=== PATIENT | female | born 1995 | race Caucasian/White ===

== ENCOUNTER 2021-10-08 13:47 | Emergency (ER) | payer OTHER, SELFPAY ==
--- NOTE | ~2021-10-08 | CT_ITS ---
EXAMINATION: CT brain wo con DATE: 10/08/2021 14:09 INDICATION: Headache TECHNIQUE: Computed tomography (CT) of the head was performed without intravenous contrast. Sagittal and coronal reconstructions were performed. The mA was adjusted according to patient size. Iterative reconstruction technique was employed. The dose-length product was 529.67 mGy-cm. COMPARISON: None FINDINGS: No acute intracranial hemorrhage, acute infarction or abnormal extra axial fluid collection. Ventricl es are normal and symmetric. No mass/mass effect. The orbits, paranasal sinuses and mastoid air cells are normal. IMPRESSION: 1. Normal head CT. No acute intracranial process. Reviewed, dictated and finalized at location A.
[2021-10-08 13:49] VITALS: BP 139/70; PULSE 76; RESP 16; TEMP 35.7; O2SAT 99
--- NOTE | 2021-10-08 14:00 | ED.HA ---
HPI - Headache General Chief Complaint: Unspecified Stated Complaint: STUTTERING Time Seen by Provider: 10/08/21 13:54 Source: patient Mode of arrival: ambulatory Limitations: no limitations History of Present Illness HPI Narrative: Patient is a 26-year-old female complaining of headache accompanied by stuttering that started last night but now resolved. Patient states her headache is from back to frontal, mild 3 out of 10, dull. Patient denies any visual disturbance, focal weakness or numbness, unsteady gait, dizziness, neck pain, back pain, chest pain, shortness of breath, nausea, vomiting, diaphoresis, fever or chills. Related Data Allergies Allergy/AdvReac Type Severity Reaction Status Date / Time No Known Allergies Allergy Verified 10/08/21 13:56 Review of Systems Review of Systems: Per HPI All systems reviewed & are unremarkable except as noted in HPI and below Constitutional: Constitutional: Denies body ache(s), Denies chills, Denies excessive sweating, Denies fatigue, Denies fever(s), Denies headache(s), Denies lethargy, Denies malaise, Denies weakness and Denies weight loss Eyes: Eyes: Denies blurry vision, Denies change in vision and Denies loss of vision ENT: Denies dizziness, Denies ear discharge, Denies headache(s), Denies lip swelling, Denies epistaxis, Denies nasal congestion, Denies neck pain, Denies throat swelling and Denies tongue swelling Cardiovascular: Cardiovascular: Denies chest pain, Denies chest pain at rest, Denies chest pain with activity, Denies diaphoresis, Denies rapid heart rate, Denies edema, Denies irregular heart rhythm, Denies lightheadedness, Denies palpitations, Denies dyspnea and Denies dyspnea on exertion Respiratory: Respiratory: Denies chest congestion, Denies cough, Denies hemoptysis, Denies dyspnea and Denies dyspnea on exertion Gastrointestinal: Gastrointestinal: Denies abdominal pain, Denies melena, Denies hematochezia, Denies diarrhea, Denies nausea, Denies vomiting and Denies hematemesis Musculoskeletal: Musculoskeletal: Denies abnormal gait, Denies deformity, Denies joint swelling, Denies limited range of motion, Denies neck pain and Denies numbness Neurologic: Denies abnormal gait, Denies confusion, Denies dizziness, Denies focal weakness, Denies loss of vision, Denies numbness, Denies Other visual disturbances, Denies Sensory deficit (Neuro) and Denies weakness Psychiatric: Psychiatric: Denies confusion, Denies depression, Denies auditory hallucinations, Denies homicidal ideation and Denies suicidal ideation Endocrine: Endocrine: Denies cold intolerance, Denies excessive sweating, Denies fatigue, Denies heat intolerance and Denies palpitations Hematologic/Lymphatic: Hematologic/Lymphatic: Denies easy bleeding and Denies easy bruising Allergic/Immunologic: Allergic/Immunologic: Denies lip swelling, Denies throat swelling and Denies tongue swelling PMFSH Comments Past medical history: Celiac disease Family history: Negative for stroke, aneurysm or dissection Social history: Non-smoker no EtOH or drug use Exam Const: General: cooperative, healthy appearing, comfortable, no acute distress, well developed, alert and awake; No confusion Orientation/consciousness: oriented to person, oriented to place, oriented to time, patient oriented x3 and No confusion Limitations: no limitations HENMT: Head: normal to inspection, normocephalic and atraumatic Ears: hearing grossly normal bilaterally, TM normal on the right and TM normal on the left General nose exam: Normal external nose present, Normal nares present and No nasal discharge present Face and sinus: normal facial exam Mouth: Yes Normal oral and palatal mucosa present, Yes lip normal, Yes tongue normal and Yes oropharynx normal Throat: posterior oropharynx normal, tonsils normal and uvula midline Eyes: General: appearance normal, both eyes and all related structures Pupils: Equal, round and reactive pupils present EOM: EOMs intac
[2021-10-08 14:36] LABS: Basophils Percent Auto 0.4 % (0.2-1.2); Eosinophils Absolute Auto 0.1 K/mm3 (0-0.3); Eosinophils Percent Auto 0.9 % (0-4.4); Hematocrit 37.7 % (37.0-47.0); Hemoglobin 11.9 g/dL (12.0-15.0); Immature Granulocyte Absolute 0.01 K/mm3 (0.00-0.031); Immature Granulocyte Percent A 0.1 % (0-0.5); Lymphocytes Absolute Auto 2.31 K/mm3 (0.9-3.2); Lymphocytes Percent Auto 34.1 % (18.3-44.2); Mean Corpuscular HGB Conc 31.6 g/dl (32-36); Mean Corpuscular Hemoglobin 25.1 pg (26-34); Mean Corpuscular Volume 79.5 fl (80-100); Mean Platelet Volume 10.3 fl (7.4-10.4); Monocytes Absolute Auto 0.5 K/mm3 (0.1-0.6); Neutrophils Absolute Auto 3.8 K/mm3 (1.3-6.7); Neutrophils Percent Auto 56.5 % (45.5-73.1); Platelet Count Result 287 k/mm3 (150-375); Red Blood Count 4.74 M/mm3 (4.2-5.4); White Blood Count 6.8 K/mm3 (4.5-10.0)
[2021-10-08 14:46] LABS: Anion Gap 7 mmol/L (8-16); Blood Urea Nitrogen 15 mg/dL (7-17); Calcium 8.6 mg/dL (8.4-10.2); Carbon Dioxide 26 mmol/L (22-30); Chloride 104 mmol/L (98-107); Estimated CRCL calculation 102 ml/min; Estimated Glomerular Filt Rate > 60; Glucose 86 mg/dL (65-110); Sodium 137 mmol/L (137-145)
== END 2021-10-08 17:29 | disposition home or self-care (01) ==
PROVIDERS: Emergency Provider Emergency Medicine; PCP Family Medicine
DX: R51.9 Headache, unspecified (principal); K90.0 Celiac disease
CPT/HCPCS: 36415; 70450; 80048; 81025; 85025; 99284

== ENCOUNTER 2021-10-09 09:31 | Outpatient (CLI) | payer OTHER, SELFPAY ==
--- NOTE | ~2021-10-09 | US_ITS ---
EXAMINATION: US breast LT limited HISTORY: Mastodynia and palpable lump in the lower outer left breast TECHNIQUE: Limited left breast ultrasound is performed. FINDINGS: There is no evidence of focal abnormal cystic or solid mass in the vicinity of the patient' s left breast pain IMPRESSION: No specific sonographic correlate is identified for the patient's left breast pain and palpable lump. Further evaluation at this time should be based on clinical assessment. Continued follow-up physical examination is recommended. BI-RADS Category 1: Negative Reviewed, dictated and finalized at location A. IMPRESSION: No specific sonographic correlate is identified for the patient's left breast p ain and palpable lump. Further evaluation at this time should be based on clini yuki assessment. Continued follow-up physical examination is recommended. BI-RADS Category 1: Negative
== END 2021-10-09 09:32 ==
PROVIDERS: Visit Provider Obstetrics & Gynecology
DX: N64.4 Mastodynia (principal)
CPT/HCPCS: 76642

== ENCOUNTER 2022-07-14 10:26 | Emergency (ER) | payer OTHER, SELFPAY ==
[2022-07-14 10:51] VITALS: BP 124/81; PULSE 116; RESP 16; TEMP 37.3; O2SAT 100
--- NOTE | 2022-07-14 11:08 | ED.URI ---
HPI - URI/Sore Throat General Chief Complaint: Upper Respiratory Infection Stated Complaint: sorethroat Time Seen by Provider: 07/14/22 10:55 Source: patient, RN notes reviewed and old records reviewed Mode of arrival: ambulatory Limitations: no limitations History of Present Illness HPI Narrative: 27 year old female who presents to [facility] care with complaints of severe sore throat since yesterday with temperatures up to 104F. Patient reports that she has had COVID vaccinations no Booster but has not had flu shot. Patient reports nasal congestion, fever, body aches, states her saliva feels like it gets stuck in her throat so is spitting secretions in emesis bag, no airway compromise noted. speech is clear but is painful to talk. Patient reports that she has been taking Ibuprofen, Tylenol and also NyQuil for her symptoms. MD elicited complaint: cough and sore throat Onset (ago): day(s) (2) Pain scale (0-10): 9 Able to tolerate fluids by mouth: Yes Treatments prior to arrival: acetaminophen, ibuprofen and other (NyQuil) Related Data Allergies Allergy/AdvReac Type Severity Reaction Status Date / Time No Known Allergies Allergy Verified 07/14/22 10:52 Review of Systems Review of Systems: CONSTITUTIONAL: Reports malaise, chills, sweats, or fever. EYES: Denies visual changes, redness, or discharge. ENT: Reports rhinorrhea, congestion, sinus pain,no otalgia positive for sore throat. CARDIOVASCULAR: Denies chest pain, palpitations, or edema. RESPIRATORY: No cough.? Denies dyspnea. GASTROINTESTINAL: Denies abdominal pain, nausea, vomiting, diarrhea SKIN: Denies rash or itching. MUSCULOSKELETAL: Reports myalgia. NEUROLOGIC: Denies headache. All systems reviewed & are unremarkable except as noted in HPI and below PMFSH Past Medical History Medical History (Updated 07/19/22 @ 08:40 by Natalie Diaz NP) Celiac disease Social History Social History (Updated 07/19/22 @ 08:41 by Natalie Diaz NP) Smoking status: Never smoker Alcohol intake: current Alcohol use details: social Substance use type: does not use Gender identity (if verbalized by the patient): Female Comments At time of signature, agree with nursing past medical, surgical, social and family history. There is no relevant family history pertinent to the presenting complaint Exam Narrative: GENERAL: Well-appearing, well-nourished, and in no acute distress. HEAD: Normocephalic EYES: PERRLA, conjunctivae clear ENT: Nares clear, turbinates edematous and erythematous, clear discharge. Mucous membranes moist. TM pearly colmenares with dull light reflex bilaterally; no tragal tenderness. Oropharynx erythematous without lesions. Tonsils red, mildly enlarged and without exudate, no drooling, no hoarseness, no trismus, uvula midline. NECK: Supple. lymphadenopathy CHEST: Clear to auscultation, breath sounds equal. No wheezing, rhonchi, rales, or stridor. No respiratory distress, speaks in full sentences.SAO2 100% on room air HEART: Regular rate and rhythm. No murmur heard. SKIN: Warm, dry, no rash. NEURO: Alert and oriented x3. PSYCH: Normal mood and affect Course Course Emergency Course: Patient is aware of diagnosis, understands and agrees to treatment plan.? Anticipatory guidance given.? Patient agrees to follow-up as directed and is aware of reasons to seek care at the emergency department. Portions of this record may have been created with voice recognition software Level of Care: Express Care Visit Vital Signs Vital signs: Vital Signs Temperature 37.3 C 07/14/22 10:51 Pulse Rate 116 H 07/14/22 10:51 Respiratory Rate 16 07/14/22 10:51 Blood Pressure 124/81 07/14/22 10:51 Pulse Oximetry 100 07/14/22 10:51 Temperature 37.3 C 07/14/22 10:51 Pulse Rate 116 H 07/14/22 10:51 Respiratory Rate 16 07/14/22 10:51 Blood Pressure 124/81 07/14/22 10:51 Pulse Oximetry 100 07/14/22 10:51 Revie
== END 2022-07-14 12:02 | disposition home or self-care (01) ==
PROVIDERS: Emergency Provider Registered Nurse; PCP Family Medicine
DX: J02.0 Streptococcal pharyngitis (principal); Z20.822 Contact with and (suspected) exposure to COVID-19; K90.0 Celiac disease
CPT/HCPCS: 87081; 87147; 87426; 87804; 99213; C9803; G0463

== ENCOUNTER 2022-12-20 16:22 | Emergency (ER) | payer OTHER, SELFPAY ==
[2022-12-20 17:28] VITALS: BP 106/67; PULSE 77; RESP 15; TEMP 36.7; O2SAT 100
--- NOTE | 2022-12-20 17:57 | ED.WOUNDLAC ---
HPI - Wound/Laceration General Chief Complaint: Wound/Laceration Stated Complaint: laceration Time Seen by Provider: 12/20/22 17:28 History of Present Illness HPI narrative: 27-year-old female reports for evaluation for a laceration to her left index finger that occurred 20 minutes prior to arrival. Patient states she was using a market editor knife to cut cabbage and accidentally cut her finger. She is unsure of her last tetanus shot. Bleeding is controlled. Related Data Allergies Allergy/AdvReac Type Severity Reaction Status Date / Time No Known Allergies Allergy Verified 12/20/22 18:10 Review of Systems Review of Systems: CONSTITUTIONAL: Denies fever, chills EYES: Denies visual changes, redness, or discharge. ENT: Denies rhinorrhea, congestion, sore throat, or otalgia. CARDIOVASCULAR: Denies chest pain, palpitations, or edema. RESPIRATORY: Denies cough or dyspnea. GASTROINTESTINAL: Denies abdominal pain, nausea, vomiting, or diarrhea. GENITOURINARY: Denies dysuria or hematuria. SKIN: See HPI MUSCULOSKELETAL: Denies back pain, joint pain, or myalgia. NEUROLOGIC: Denies headache, numbness, dizziness, or weakness. PSYCHIATRIC: Denies anxiety or depression. [facility] Past Medical History Medical History Celiac disease Social History Social History Smoking status: Never smoker Alcohol intake: current Alcohol use details: social Substance use type: does not use Gender identity (if verbalized by the patient): Female Exam Narrative: GENERAL: Well-appearing, in no acute distress. HEAD: Normocephalic NECK: Supple. CHEST: No respiratory distress. Clear to auscultation, no adventitious breath sounds. HEART: Regular rate and rhythm. No murmur heard. Normal peripheral pulses. EXTREMITIES: Normal range of motion. No edema. SKIN: <1 cm circular avulsion to the medial aspect of the left second finger involving a small portion of the nail. No laceration to the wound bed. Cap refill less than 2. Full range of motion of finger. Sensation intact. Radial pulse 2+. NEURO: No focal deficits. Alert and oriented x3. PSYCH: Normal mood and affect. Course Vital Signs Vital signs: Vital Signs Temperature 98.0 F 12/20/22 17:28 Pulse Rate 77 12/20/22 17:28 Respiratory Rate 15 12/20/22 17:28 Blood Pressure 106/67 12/20/22 17:28 Pulse Oximetry 100 12/20/22 17:28 Oxygen Delivery Room Air 12/20/22 17:28 Temperature 98.0 F 12/20/22 17:28 Pulse Rate 77 12/20/22 17:28 Respiratory Rate 15 12/20/22 17:28 Blood Pressure 106/67 12/20/22 17:28 Pulse Oximetry 100 12/20/22 17:28 Oxygen Delivery Room Air 12/20/22 17:28 MDM - Wound/Laceration MDM Narrative Medical decision making narrative: 27-year-old female reports for a laceration to her left index finger that occurred just prior to arrival she was cutting cabbage. Vitals stable. Exam reveals a less than 1 cm skin avulsion to the left index finger involving a small portion of the nail. Bleeding controlled. No laceration to nailbed. She is neurovascularly intact. Tetanus updated. Plan for the avulsion to heal by secondary intention. Wound irrigated extensively with saline, antibiotic ointment and bandage applied. Encouraged Tylenol and ibuprofen for pain control, wound care discussed. No history of DM, she is not immunocompromised, therefore no ABX prescribed at this time. Advised patient follow-up with PCP within the following week for reevaluation. Strict ED return precautions discussed. Patient agrees with the plan verbalized understanding. Discharged in stable condition. Medical Records Attestation: I reviewed the patient's medical records. Lab Data Attestation: I reviewed the patient's lab results. Discharge Plan Discharge Clinical Impression: Avulsion of skin of finger Patient Disposition: Home, S
[2022-12-20] MEDS: TETANUS,DIPHTHERIA,AC PERTUSSIS ADULT (0.5 ML) BOOSTRIX IM (18:10)
[2022-12-20] MEDS: ACETAMINOPHEN 500 MG TABLET 1000 MG PO (18:11)
== END 2022-12-20 18:37 | disposition home or self-care (01) ==
PROVIDERS: Emergency Provider Physician Assistant; PCP Family Medicine
DX: S61.211A Laceration without foreign body of left index finger without damage to nail, initial encounter (principal); Z23 Encounter for immunization; W26.0XXA Contact with knife, initial encounter; Y93.G1 Activity, food preparation and clean up; K90.0 Celiac disease
CPT/HCPCS: 90471; 90715; 99282; A9270

== ENCOUNTER 2023-09-19 19:05 | Emergency (ER) | payer OTHER, SELFPAY ==
--- NOTE | 2023-09-19 19:24 | ED.URI ---
HPI - URI/Sore Throat General Chief Complaint: Upper Respiratory Infection Stated Complaint: Fever,Cough,Sore Throat,Bodyache Time Seen by Provider: 09/19/23 19:24 Source: patient Mode of arrival: ambulatory Limitations: no limitations History of Present Illness HPI Narrative: Monisha is a 28-year-old female patient presenting to the clinic today with complaints of fever, cough, sore throat, and body aches x2 days. She reports both of her children have both been sick with similar symptoms. MD elicited complaint: sore throat and nasal congestion Related Data Home Medications Medication Instructions Recorded Confirmed albuterol sulfate 90 mcg/actuation 90 mcg inhalation DIRECTED 09/19/23 09/19/23 aerosol inhaler fluoxetine 10 mg capsule 10 mg DIRECTED 09/19/23 09/19/23 Allergies Allergy/AdvReac Type Severity Reaction Status Date / Time No Known Allergies Allergy Verified 12/20/22 18:10 Review of Systems Review of Systems: Pertinent positives per HPI. Patient denies any rash, headache, visual changes, dizziness, shortness of breath, chest pain, palpitations, nausea, vomiting, diarrhea, constipation, abdominal pain, or any urinary issues. [facility] Past Medical History Medical History Celiac disease Social History Social History Smoking status: Never smoker Alcohol intake: current Alcohol use details: social Substance use type: does not use Gender identity (if verbalized by the patient): Female Comments At the time of my signature, I reviewed and agree with the nursing past medical, surgical, social, and family history. There is no relevant family history pertinent to the patient complaint. Exam Narrative: General: Well-developed, well nourished, in no apparent distress Head: Normocephalic, atraumatic Eyes: Pupils equally round and reactive to light bilaterally, EOM intact, sclera and conjunctive clear, no discharge, lids normal Ears: TMs intact and clear, ear canals clear, no drainage, grossly hearing normal. Nose: Nares patent, no discharge, no inflammation, no sinus tenderness. Mouth: Oral pharynx without lesions or masses, good dentition, MMM. Neck: Supple, trachea midline, no enlargement of anterior or posterior cervical nodes, no thyroid masses or goiter palpable. Cardio: Regular rate and rhythm, s1 and s2 normal, no murmur appreciated. Resp: Clear to auscultation bilaterally, no rhonchi, rales, wheezing or rubs Course Course Emergency Course: Portions of this record may have been created with voice recognition software. Level of Care: Express Care Visit Vital Signs Vital signs: Vital signs reviewed MDM - URI/Sore Throat MDM Narrative Medical decision making narrative: At the time of visit patient is resting comfortably on the exam table. Patient appears to be nontoxic. Labs: COVID, flu, and strep test was performed. COVID and strep test was negative. Influenza testing was positive for influenza B. Plan: I suspect patient has influenza B. Tamiflu prescription was sent to the pharmacy. Supportive measures were discussed with the patient and they voiced understanding discharge instructions and agrees to treatment plan. Return precautions reviewed Differential Diagnosis Differential diagnosis: Likely upper respiratory infection, otitis media, sinusitis, viral infection, bronchitis, influenza, pharyngitis and other (COVID) Discharge Plan Discharge Clinical Impression: Influenza B Patient Disposition: Home, Self-Care Condition: Stable Instructions: Antibiotic Form, Influenza (ED) Additional Instructions: COVID and strep test were negative. Influenza B test was positive. Take prescription medications only as prescribed-tamiflu May take DayQuil/NyQuil for cold/flu symptoms Increase fluids and stay well hydrated Tylenol/mo
[2023-09-19 19:27] VITALS: BP 121/85; PULSE 106; RESP 16; TEMP 37.6; O2SAT 100
== END 2023-09-19 20:05 | disposition home or self-care (01) ==
PROVIDERS: Emergency Provider Nurse Practitioner Family; PCP Nurse Practitioner Family
DX: J10.1 Influenza due to other identified influenza virus with other respiratory manifestations (principal); Z20.822 Contact with and (suspected) exposure to COVID-19; K90.0 Celiac disease
CPT/HCPCS: 87081; 87426; 87804; 87880; 99213; G0463

== ENCOUNTER 2025-03-14 05:12 | Inpatient (IN) | payer OTHER, SELFPAY ==
[2025-03-14] VITALS (16 sets, daily range): BP systolic 98–118; BP diastolic 54–80; PULSE 56–68; RESP 14–18; TEMP 36.1–36.5; O2SAT 95–100; BMI 29.9
--- NOTE | ~2025-03-14 | MR_ITS ---
EXAMINATION: MR MRCP wo/w con/w 3D wo ind DATE: 03/14/2025 13:19 INDICATION: Right upper quadrant abdominal pain. Cholelithiasis. TECHNIQUE: Magnetic resonance imaging (MRI) of the abdomen was performed without and with 17 mL Multihance intravenous contrast. Sequences included coronal T2- weighted SS-FSE, coronal T2-weighted FS SS-FSE, coronal T2-weighted FS FIESTA, axial T2-weighted FS FIESTA, axial T2-weighted FIESTA, sagittal T2-weighted SS- FSE, axial T1-weighted dual-echo FSPGR, axial T2-weighted SS-FSE, axial T1- weighted LAVA, axial T2-weighted STIR FSE. Thick-slab T2-weighted FRFSE-XL images were obtained for magnetic resonance cholangiopancreatography (MRCP). Rotating maximum intensity projection 3-D reconstructions of the volumetric data were created by the technologist. Postcontrast sequences included a time course of axial T1-weighted LAVA. COMPARISON: None. FINDINGS: ABDOMEN MRI: Heart size is normal. No pericardial or pleural effusion. Liver, spleen, pancreas, bilateral adrenal glands and kidneys are normal. Multiple low signal intensity gallstones layering in the dependent aspect of the normal gallbladder. Bowels including the appendix are normal. No pathologically enlarged abdominal lymphadenopathy. Mild disc height loss with annular fissure and mild disc bulge at L4-L5. Bone marrow signal is normal throughout. ABDOMEN MRCP: The common bile duct measures up to 5-6 mm in maximal diameter. There is a 3-4 mm stone in the distalmost common bile duct. No intrahepatic biliary ductal dilation. IMPRESSION: 1. Cholelithiasis and choledocholithiasis with 3-4 mm stone in the distal common bile duct which measures up to 5-6 mm in maximal diameter. No gallbladder wall thickening or pericholecystic infiltrate showing to suggest acute cholecystitis. Reviewed, dictated and finalized at location A. IMPRESSION: 1. Cholelithiasis and choledocholithiasis with 3-4 mm stone in the distal commo n bile duct which measures up to 5-6 mm in maximal diameter. No gallbladder wal l thickening or pericholecystic infiltrate showing to suggest acute cholecystit is.
--- NOTE | ~2025-03-14 | XR_ITS ---
XR ERCP Indication: Abdomen pain. TECHNIQUE: Fluoroscopy used during ERCP procedure performed by [Gaudencio Milner MD] on 03/15/2025. 73 seconds of fluoroscopy with 5 fluoroscopic images captured. FINDINGS: Correlate with procedure note. IMPRESSION: Fluoroscopy used during ERCP procedure. There are filling defects in the distal common duct which may represent stones or gas. Reviewed, dictated and finalized at location O. IMPRESSION: Fluoroscopy used during ERCP procedure. There are filling defects i n the distal common duct which may represent stones or gas.
--- NOTE | ~2025-03-14 | US_ITS ---
EXAMINATION: US abdomen limited DATE: 03/16/2025 15:06 INDICATION: Cholecystitis TECHNIQUE: Multiple grayscale and Doppler ultrasound images of the abdomen were obtained. COMPARISON: 03/14/2025 FINDINGS: The pancreatic head and body are normal in appearance. The pancreatic tail is not visualized. Liver has normal echogenicity and contour, with a smooth surface. No liver lesion identified. No intrahepatic biliary duct dilation suspected. Portal venous flow was seen in the hepatopetal, normal direction and has normal Doppler waveform. There are several mobile echogenic and shadowing gallstones in the dependent aspect of the normal appearing gallbladder. The common bile duct measures 5-6 mm in maximal diameter which is normal. Sonographic Orr sign was reported as negative by the entry level account representative. IMPRESSION: 1. Cholelithiasis within the normal-appearing gallbladder with no abnormal dilation, wall thickening or sonographic Orr sign to suggest acute cholecystitis. Reviewed, dictated and finalized at location A. IMPRESSION: 1. Cholelithiasis within the normal-appearing gallbladder with no abnormal dila tion, wall thickening or sonographic Orr sign to suggest acute cholecystitis .
--- NOTE | ~2025-03-14 | CT_ITS ---
EXAMINATION: CT abdomen pelvis w con DATE: 03/14/2025 06:25 INDICATION: Epigastric abdominal pain TECHNIQUE: Computed tomography (CT) of the abdomen and pelvis was performed with 100 mL Omnipaque-350 intravenous contrast. Automated exposure control and iterative reconstruction technique were employed. The dose-length product was 876.65 mGy-cm. COMPARISON: None FINDINGS: Lung bases are clear. Heart size is normal. No pericardial or pleural effusion. Multiple small calcified gallstones layering in the dependent aspect of the gallbladder. The common bile duct is mildly dilated to 7 mm but without evident distal obstructing stone. Mild intrahepatic biliary ductal dilation as well as mild periportal edema. Small calcified splenic nodule consistent with old granulomatous disease. Pancreas, bilateral adrenal glands and kidneys are normal. Bowels including the appendix are normal. There is a 2.0 cm peripherally enhancing corpus luteum cyst at the left ovary images likely ruptured with defect in the lateral wall of the cyst. Bladder, anteverted uterus and and right adnexa are unremarkable. No free intraperitoneal gas or fluid. No pathologically enlarged abdominal or pelvic lymphadenopathy. Mild lower lumbar spondylosis. IMPRESSION: 1. Cholelithiasis with mild intra and extrahepatic biliary ductal dilation suggesting either an occult obstructing stone or recently passed stone. Correlate with renal function tests and could consider MRCP for further evaluation as clinically indicated. 2. Partially ruptured 2 cm corpus luteum cyst at the left ovary. Reviewed, dictated and finalized at location A. IMPRESSION: 1. Cholelithiasis with mild intra and extrahepatic biliary ductal dilation sugg esting either an occult obstructing stone or recently passed stone. Correlate w ith renal function tests and could consider MRCP for further evaluation as clin ically indicated. 2. Partially ruptured 2 cm corpus luteum cyst at the left ovary.
[2025-03-14 05:22] LABS: Hematocrit 33.5 % (37.0-47.0); Hemoglobin 10.0 g/dL (12.0-15.0); Immature Granulocyte Percent A 0.3 % (0-0.5); Lymphocytes Absolute Auto 3.15 K/mm3 (0.9-3.2); Mean Corpuscular HGB Conc 29.9 g/dl (32-36); Mean Corpuscular Hemoglobin 21.5 pg (26-34); Mean Corpuscular Volume 72.0 fl (80-100); Nucleated Red Blood Cells Absolute Auto 0.000 K/mm3 (0.0-0.012); Nucleated Red Blood Cells Perc 0.0 % (0.0-0.2); Platelet Count Result 261 k/mm3 (150-375); Red Blood Count 4.65 M/mm3 (4.2-5.4); White Blood Count 8.7 K/mm3 (4.5-10.0)
--- NOTE | 2025-03-14 05:28 | ED_ITS ---
HPI - Abdominal Pain General Chief Complaint: Abdominal Pain <Emir Carrillo MD - Last Filed: 03/14/25 07:14> Stated Complaint: RUQ ABD PAIN <Emir Carrillo MD - Last Filed: 03/14/25 07:14> Time Seen by Provider: 03/14/25 05:16 <Emir Carrillo MD - Last Filed: 03/14/25 07:14> History of Present Illness HPI narrative: This is a 28-year-old female with history of celiac sprue presents to the ED for epigastric abdominal pain. Patient states she was woken up with severe epigastric abdominal pain about an hour ago. She has had nausea and emesis x2. She has never had pain like this before. No recent illnesses. No prior abdominal surgeries. Last normal menstrual period was last week. Denies fevers, chills, chest pain, shortness of breath, dysuria, hematuria. <Emir Carrillo MD - Last Filed: 03/14/25 07:14> Related Data Home Medications: Home Medications ?Medication ?Instructions ?Recorded ?Confirmed ?Last Taken ?Type albuterol sulfate 90 mcg/actuation 90 mcg inhalation A S DIRECTED 09/19/23 09/19/23 Unknown History aerosol inhaler fluoxetine 10 mg capsule 10 mg DIRECTED 09/19/23 0 09/19/23 Unknown History <Emir Carrillo MD - Last Filed: 03/14/25 07:14> Allergies/Adverse Reactions: Allergies Allergy/AdvReac Type Severity Reaction Status Date / Time No Known Allergies Allergy Verified 12/20/22 18:10 <Emir Carrillo MD - Last Filed: 03/14/25 07:14> Review of Systems 2 Review of Systems: Gen.: Denies fevers or chills Eyes: Denies eye pain or visual change ENT: Denies congestion Respiratory: Denies shortness of breath or cough CV: Denies chest pain or palpitations GI: As per HPI denies burning, urgency, frequency or hematuria Musculoskeletal: Denies back pain or muscle pain Neuro: Denies numbness, tingling, weakness or focal weakness Skin: Denies rash Except as documented, all other systems reviewed and negative <Emir Carrillo MD - Last Filed: 03/14/25 07:14> PMFSH Past Medical History Medical History: Medical History Celiac disease <Emir Carrillo MD - Last Filed: 03/14/25 07:14> Social History Social History: Social History Smoking status: Never smoker Alcohol intake: current Alcohol use details: social Substance use type: does not use Gender identity (if verbalized by the patient): Female <Emir Carrillo MD - Last Filed: 03/14/25 07:14> Exam 2 Narrative: APPEARANCE: uncomfortable appearing EYES: EOMI HEENT: Normocephalic, atraumatic, OMM RESPIRATORY: No respiratory distress Clear to auscultation bilaterally with no rhonchi wheezing or rales. CARDIOVASCULAR: Regular rate and rhythm without murmurs rubs or gallops. ABDOMINAL: Soft, tenderness palpation to the epigastrium without rebound or guarding MUSCULOSKELETAl: Moves all extremities. No clubbing, cyanosis or edema. NEURO: Awake and alert. Following commands, speech normal, no focal deficits SKIN:: Warm, dry. No rashes lesions or abrasions PSYCHIATRIC: Normal affect/mood, <Emir Carrillo MD - Last Filed: 03/14/25 07:14> Course Vital Signs Vital signs: Vital Signs Temperature 36.4 C L 03/14/25 05:08 Pulse Rate 67 03/14/25 05:08 Respiratory Rate 18 03/14/25 05:08 Blood Pressure 98/80 L 03/14/25 05:08 Pulse Oximetry 100 03/14/25 05:08 Oxygen Delivery Room Air 03/14/25 05:08 Temperature 36.4 C L 03/14/25 05:08 Pulse Rate 67 03/14/25 05:08 Respiratory Rate 18 03/14/25 05:08 Blood Pressure 104/63 03/14/25 05:32 Pulse Oximetry 98 03/14/25 07:00 Oxygen Delivery Room Air 03/14/25 05:08 <Emir Carrillo MD - Last Filed: 03/14/25 07:14> Vital Signs Temperature 36.4 C L 03/14/25 05:08 Pulse Rate 67 03/14/25 05:08 Respiratory Rate 18 03/14/25 05:08 Blood Pressure 98/80 L 03/14/25 05:08 Pulse Oximetry 100 03/14/25 05:08 Oxygen Delivery Room Air 03/14/25 05:08 Temperature 36.4 C L 03/14/25 05:08 Pulse Rate 67 03/14/25 05:08 Respiratory Rate 18 03/14/25 05:08 Blood Pressure 104/63 03/14/25 05:32 Pulse Oximetry 98 03/14/25 07:00 Oxygen Delivery Room Air 03/14/25 05:08 <Robb Davila MD - Last Filed: 03/14/25 08:14> MDM - Abdominal Pain MDM Narrative Medical decision making narrative: 30-year-old female that presented to the ED for epigastric abdominal pain. On initial evaluation, patient was uncomfortable appearing, afebrile, hemodynamically stable. She did have tenderness to palpation to the epigastrium. No peritoneal signs. Patient was given Toradol, Zofran, GI cocktail, 1 L NS bolus. She did have improvement of her pain. CBC showed a mild anemia at 10.0. CMP without significant abnormalities. UA clear. CT Abdomen/ pelvis pending at this time. Patient signed out pending CT read. < Emir Carrillo MD - Last Filed: 03/14/25 07:14> 30-year-old female that presented to the ED for epigastric abdominal pain. On initial evaluation, patient was uncomfortable appearing, afebrile, hemodynamically stable. She did have tenderness to palpation to the epigastrium. No peritoneal signs. Patient was given Toradol, Zofran, GI cocktail, 1 L NS bolus. She did have improvement of her pain. CBC showed a mild anemia at 10.0. CMP without significant abnormalities. UA clear. CT Abdomen/ pelvis pending at this time. Patient signed out pending CT read. CT scan showed evidence of cholelithiasis with biliary ductal dilatation with recommendation for MRCP Case was discussed with the hospitalist patient received further care in the inpatient setting <Robb Davila MD - Last Filed: 03/14/25 08:14> Differential Diagnosis Differential diagnosis: Likely abdominal pain, constipation, gastroenteritis, pancreatitis and small bowel obstruction <Emir Carrillo MD - Last Filed: 03/14/25 07:14> Lab Data Result diagrams: 03/14/25 05:18 03/14/25 05:18 <Emir Carrillo MD - Last Filed: 03/14/25 07:14> Labs: Lab Results 03/14/25 03/14/25 03/14/25 Range/Units 05:18 05:44 05:48 WBC 8.7 (4.5-10.0) K/mm3 RBC 4.65 (4.2-5.4) M/mm3 Hgb 10.0 L (12.0-15.0) g/dL Hct 33.5 L (37.0-47.0) % MCV 72.0 L (80-100) fl MCH 21.5 L (26-34) pg MCHC 29.9 L (32-36) g/dl RDW 17.2 H (11.5-14.5) % Plt Count 261 (150-375) k/mm3 MPV 10.5 H (7.4-10.4) fl Immature Gran % (Auto) 0.3 (0-0.5) % Neut % (Auto) 54.7 (45.5-73.1) % Lymph % (Auto) 36.3 (18.3-44.2) % [place] % (Auto) 7.4 (2.6-8.5) % Eos % (Auto) 0.8 (0-4.4) % Baso % (Auto) 0.5 (0.2-1.2) % Lymph # (Auto) 3.15 (0.9-3.2) K/mm3 [place] # (Auto) 0.6 (0.1-0.6) K/mm3 Eos # (Auto) 0.1 (0-0.3) K/mm3 Baso # (Auto) 0.0 (0.0-0.1) K/mm3 Abs Immat Gran (auto) 0.03 (0.00-0.031) K/mm3 Absolute Neuts (auto) 4.7 (1.3-6.7) K/mm3 Absolute Nucleated RBC 0.000 (0.0-0.012) K/mm3 Band Neutrophils % Not Reportable Nucleated RBC % 0.0 (0.0-0.2) % Platelet Estimate Adequate (Adequate) Hypochromasia 1+ Ovalocytes 1+ Schistocytes None seen Sodium 137 (137-145) mmol/L Potassium 4.3 (3.4-5.0) mmol/L Chloride 107 (98-107) mmol/L Carbon Dioxide 22 (22-30) mmol/L Anion Gap 8 (4-12) mmol/L BUN 10 D (7-17) mg/dL Creatinine 0.61 L (0.7-1.0) mg/dL Estim Creat Clear Calc 117 ml/min Estimated GFR > 60 (59 - ) Glucose 115 H (65-110) mg/dL Calcium 8.7 (8.4-10.2) mg/dL Total Bilirubin 0.3 (0.2-1.3) mg/dL AST 37 H (14-36) U/L ALT 28 (6-35) U/L Alkaline Phosphatase 56 (38-126) U/L Total Protein 7.0 (6.3-8.2) g/dL Albumin 4.0 (3.5-5.1) g/dL Lipase 76 (23-300) U/L Urine Color Yellow (Yellow) Urine Appearance Cloudy H (Clear) Urine pH 5.0 (5.0-9.0) Ur Specific [place] 1.019 (1.001-1.035) Urine Protein Negative (Negative) mg/dL Urine Glucose (UA) Negative (Negative) mg/dL Urine Ketones Negative (Negative) mg/dL Ur Blood (Man) Negative (Negative) Urine Nitrate Negative (Negative) Urine Bilirubin Negative (Negative) Urine Urobilinogen 0.2 (<2.0) mg/dL Leukocyte Esterase Rfl Negative (Negative) TIRSO/UL Urine RBC 0-2 (0-2) /hpf Urine WBC 0-5 (0-3) /hpf Ur Squamous Epith Cells Occasional (Few) /hpf Urine Bacteria Rare /hpf Urine Casts 0-2 POC Urine HCG, Qual Negative (Negative) <Emir MD Gerardo - Last Filed: 03/14/25 07:14> Lab Results 03/14/25 03/14/25 03/14/25 Range/Units 05:18 05:44 05:48 WBC 8.7 (4.5-10.0) K/mm3 RBC 4.65 (4.2-5.4) M/mm3 Hgb 10.0 L (12.0-15.0) g/dL Hct 33.5 L (37.0-47.0) % MCV 72.0 L (80-100) fl MCH 21.5 L (26-34) pg MCHC 29.9 L (32-36) g/dl RDW 17.2 H (11.5-14.5) % Plt Count 261 (150-375) k/mm3 MPV 10.5 H (7.4-10.4) fl Immature Gran % (Auto) 0.3 (0-0.5) % Neut % (Auto) 54.7 (45.5-73.1) % Lymph % (Auto) 36.3 (18.3-44.2) % [place] % (Auto) 7.4 (2.6-8.5) % Eos % (Auto) 0.8 (0-4.4) % Baso % (Auto) 0.5 (0.2-1.2) % Lymph # (Auto) 3.15 (0.9-3.2) K/mm3 [place] # (Auto) 0.6 (0.1-0.6) K/mm3 Eos # (Auto) 0.1 (0-0.3) K/mm3 Baso # (Auto) 0.0 (0.0-0.1) K/mm3 Abs Immat Gran (auto) 0.03 (0.00-0.031) K/mm3 Absolute Neuts (auto) 4.7 (1.3-6.7) K/mm3 Absolute Nucleated RBC 0.000 (0.0-0.012) K/mm3 Band Neutrophils % Not Reportable Nucleated RBC % 0.0 (0.0-0.2) % Platelet Estimate Adequate (Adequate) Hypochromasia 1+ Ovalocytes 1+ Schistocytes None seen Sodium 137 (137-145) mmol/L Potassium 4.3 (3.4-5.0) mmol/L Chloride 107 (98-107) mmol/L Carbon Dioxide 22 (22-30) mmol/L Anion Gap 8 (4-12) mmol/L BUN 10 D (7-17) mg/dL Creatinine 0.61 L (0.7-1.0) mg/dL Estim Creat Clear Calc 117 ml/min Estimated GFR > 60 (59 - ) Glucose 115 H (65-110) mg/dL Calcium 8.7 (8.4-10.2) mg/dL Total Bilirubin 0.3 (0.2-1.3) mg/dL AST 37 H (14-36) U/L ALT 28 (6-35) U/L Alkaline Phosphatase 56 (38-126) U/L Total Protein 7.0 (6.3-8.2) g/dL Albumin 4.0 (3.5-5.1) g/dL Lipase 76 (23-300) U/L Urine Color Yellow (Yellow) Urine Appearance Cloudy H (Clear) Urine pH 5.0 (5.0-9.0) Ur Specific [place] 1.019 (1.001-1.035) Urine Protein Negative (Negative) mg/dL Urine Glucose (UA) Negative (Negative) mg/dL Urine Ketones Negative (Negative) mg/dL Ur Blood (Man) Negative (Negative) Urine Nitrate Negative (Negative) Urine Bilirubin Negative (Negative) Urine Urobilinogen 0.2 (<2.0) mg/dL Leukocyte Esterase Rfl Negative (Negative) TIRSO/UL Urine RBC 0-2 (0-2) /hpf Urine WBC 0-5 (0-3) /hpf Ur Squamous Epith Cells Occasional (Few) /hpf Urine Bacteria Rare /hpf Urine Casts 0-2 POC Urine HCG, Qual Negative (Negative) <Robb Davila MD - Last Filed: 03/14/25 08:14> Imaging Data Radiologist's impression: ITS Impressions Abdomen/Pelvis CT 03/14/25 07:20 IMPRESSION: 1. Cholelithiasis with mild intra and extrahepatic biliary ductal dilation suggesting either an occult obstructing stone or recently passed stone. Correlate with renal function tests and could consider MRCP for further evaluation as clinically indicated. 2. Partially ruptured 2 cm corpus luteum cyst at the left ovary. <Emir Carrillo MD - Last Filed: 03/14/25 07:14> ITS Impressions Abdomen/Pelvis CT 03/14/25 07:20 IMPRESSION: 1. Cholelithiasis with mild intra and extrahepatic biliary ductal dilation suggesting either an occult obstructing stone or recently passed stone. Correlate with renal function tests and could consider MRCP for further evaluation as clinically indicated. 2. Partially ruptured 2 cm corpus luteum cyst at the left ovary. <Robb Davila MD - Last Filed: 03/14/25 08:14> Discharge Plan Discharge Clinical Impression: Abdominal pain, Cholelithiasis <Emir Carrillo MD - Last Filed: 03/14/25 07:14> Patient Disposition: Still a Patient <Emir Carrillo MD - Last Filed: 03/14/25 07:14> Condition: Stable <Emir Carrillo MD - Last Filed: 03/14/25 07:14> Instructions: Antibiotic Form <Emir Carrillo MD - Last Filed: 03/14/25 07:14> Patient Language: Pashto <Emir Carrillo MD - Last Filed: 03/14/25 07:14> Prescriptions: No Action fluoxetine 10 mg capsule 10 mg DIRECTED albuterol sulfate 90 mcg/actuation HFA aerosol inhaler 90 mcg INHALATION DIRECTED oseltamivir [Tamiflu] 75 mg capsule 75 mg PO Q12H 5 Days Qty: 10 0RF <Emir Carrillo MD - Last Filed: 03/14/25 07:14> Follow-up/Referrals: Ravi,Jean Sanchez APRN [Primary Care Provider, Unknown] <Emir Carrillo MD - Last Filed: 03/14/25 07:14> Time of Disposition: 08:14 <Emir Carrillo MD - Last Filed: 03/14/25 07:14> 08:14 <Robb Davila MD - Last Filed: 03/14/25 08:14>
[2025-03-14 05:32] LABS: Alanine Aminotransferase 28 U/L (6-35); Albumin Level 4.0 g/dL (3.5-5.1); Alkaline Phosphatase 56 U/L (38-126); Anion Gap 8 mmol/L (4-12); Aspartate Amino Transferase 37 U/L (14-36); Bilirubin,Total 0.3 mg/dL (0.2-1.3); Blood Urea Nitrogen 10 mg/dL (7-17); Calcium 8.7 mg/dL (8.4-10.2); Carbon Dioxide 22 mmol/L (22-30); Chloride 107 mmol/L (98-107); Estimated CRCL calculation 117 ml/min; Estimated Glomerular Filt Rate > 60; Glucose 115 mg/dL (65-110); Potassium 4.3 mmol/L (3.4-5.0); Sodium 137 mmol/L (137-145); Total Protein 7.0 g/dL (6.3-8.2)
[2025-03-14] MEDS: BELLADONNA ALK/PHENOB ELIX 10 ML, MAG HYDROX/ALUMINUM HYD/SIMETH 30 ML, LIDOCAINE 2% VI... PO (05:33)
[2025-03-14] MEDS: ONDANSETRON INJ 4 MG/2 ML VIAL IV PUSH (05:35)
[2025-03-14] MEDS: KETOROLAC 30 MG/ML VIAL (*BKC) IV PUSH (05:36)
[2025-03-14 05:43] LABS: Hypochromasia 1+; Ovalocytes 1+
[2025-03-14 05:44] LABS: Schistocytes None Seen
[2025-03-14 05:50] LABS: BEDSIDEPREGUCG Negative (Negative)
[2025-03-14 05:59] LABS: Add Urine Microscopic? YES; Appearance Urine Cloudy (Clear); Glucose Urine UA Negative (Negative); Leukocyte Esterase Ur Negative LEU/UL (Negative); Nitrate Urine Negative (Negative); Non Pathogenic Casts 0-2; Specific Grav Ur 1.019 (1.001-1.035)
[2025-03-14 07:24] LABS: Lipase 76 U/L (23-300)
--- NOTE | 2025-03-14 08:50 | ADMGEN ---
This patient, Monisha Rutherford, was admitted to Medical Room 251-01. Patient/family oriented to hospital policies and general routines including ID bracelet, bed and alarms, visiting hours, pain management, procedures, bathroom and other care routines, personal items, smoking policy, room service/diet, and visiting hours. Information on how to activate the Rapid Response Team has been discussed. Patient/Family are encouraged to report perceived risks to care and to ask questions if they do not understand what they are told or what they should do.
[2025-03-14] MEDS: SODIUM CHLORIDE 0.9% IV 1,000 ML 125 ML IV CONT (09:02)
--- NOTE | 2025-03-14 12:59 | P.HP_ITS ---
H&P: HPI History of Present Illness Date/Time: 03/14/25 12:59 Chief Complaint: Abdominal Pain Narrative: 30 y/o F with PMH of celiac disease presents here with abdominal pain. The patient presents here via EMS from home on 03/13 for further evaluation of abdominal pain. She reports onset of upper abdominal pain 1 hour prior to arrival to the emergency department. She describes the pain as stabbing, radia ting between her shoulder blades/mid to upper back, constant, and no aggravating or alleviating factors. Patient tried to manage her pain with a hot shower but did not get any relief. She reports associated nausea, vomiting, and clammy/diaphoretic. Denies fever, chills, diarrhea, or shortness of breath. She denies any previous abdominal surgeries or history of gallstones. She reports she has had similar episodes before but they were more mild in nature, have been occurring for the past month, and she attributed the pain previously to cramping as she does not follow a strict celiac diet. Initial VS at presentation: 97.5? F, HR 67, R 18, 98/80, and 100% on RA. ED workup showed: No leukocytosis, hemoglobin 10.0, no significant electrolyte derangements, creatinine 0.61 and GFR >60, glucose 115. UA had a cloudy appearance otherwise unremarkable. HCG negative. CT of the abdomen/pelvis showed cholelithiasis with mild intra and extrahepatic biliary ductal dilation suggesting either an occult obstructing stone or recently passed stone, partially ruptured 2 cm corpus luteum cyst at the left ovary. Review of Systems Review of Systems: All systems reviewed & are unremarkable except as noted in HPI and below [facility] Past Medical History Medical History Celiac disease Family History Family History Other Family history non-contributory Social History Social History Smoking status: Never smoker Alcohol intake: current Drinks per week: 10 Alcohol use details: social Substance use: never Substance use type: does not use Lack of Transportation: No Lack of Food: Never True Current Housing: I Have Housing Concerned About Future Housing: No Difficulty Paying Gas/Electric Bills: No Difficulty Paying for Meds: No Currently Unemployed: No Education: Trade/Vocational Certificate Difficulty w/ Childcare or Family Care: No Gender identity (if verbalized by the patient): Female Spiritual care concerns: No Meds Home Medications and Allergies Home Medications ?Medication ?Instructions ?Recorded ?Confirmed ?Type albuterol sulfate 90 mcg/actuation 90 mcg inhalation A S DIRECTED 09/19/23 03/14/25 History aerosol inhaler fluoxetine 10 mg capsule 10 mg PO DIRECTED 4 03/14/25 History Allergies Allergy/AdvReac Type Severity Reaction Status Date / Time No Known Allergies Allergy Verified 03/14/25 09:04 Vital Signs Vital Signs - 24 hr 03/14/25 05:08 03/14/25 05:21 03/14/25 05:28 Temperature 97.5 F L Pulse Rate 67 Respiratory Rate 18 Blood Pressure 98/80 L 111/56 L Pulse Oximetry 100 100 100 Oxygen Delivery Room Air 03/14/25 05:30 03/14/25 05:32 03/14/25 05:53 Temperature Pulse Rate Respiratory Rate Blood Pressure 104/63 Pulse Oximetry 100 100 99 Oxygen Delivery 03/14/25 06:00 03/14/25 06:15 03/14/25 06:30 Temperature Pulse Rate Respiratory Rate Blood Pressure Pulse Oximetry 98 98 100 Oxygen Delivery 03/14/25 06:45 03/14/25 07:00 03/14/25 08:50 Temperature Pulse Rate 68 Respiratory Rate 17 Blood Pressure 112/69 Pulse Oximetry 99 98 98 Oxygen Delivery 03/14/25 09:29 Temperature 96.9 F L Pulse Rate 58 L Respiratory Rate 14 Blood Pressure 108/64 Pulse Oximetry 100 Oxygen Delivery Exam Const: General: comfortable and no acute distress Other: , female, nontoxic appearance HENMT: Face/Nose/Sinus: Normal nares present Mouth: Yes moist mucous membranes Eyes: General: appearance normal, both eyes and all related structures Sclera: sclerae normal Pupils: Equal, round and reactive pupils present EOM: EOMs intact bilaterally Resp: Effort & Inspection: normal respiratory effort Auscultation: clear to auscultation bilaterally Cardio: Rate: regular rate Rhythm: regular rhythm Other: S1-S2 present without murmur, rub, ectopy GI: Other: Abdomen soft, nondistended, nontender. Normoactive bowel sounds in all quadrants. Skin: General skin exam: normal color and no rashes or lesions noted Wounds: no wounds Neuro: Speech: normal speech Motor exam (neuro): 5/5 motor strength present throughout Sensory Exam: normal sensation Other: A&Ox4 Extrem: General: normal to inspection Psych: Mental Status: mental status grossly normal Affect: normal affect Other: Good insight and judgment, very pleasant H&P: Results Labs Labs: Short CBC 03/14/25 Range/Units 05:18 WBC 8.7 (4.5-10.0) K/mm3 Hgb 10.0 L (12.0-15.0) g/dL Hct 33.5 L (37.0-47.0) % Plt Count 261 (150-375) k/mm3 BMP 03/14/25 05:18 Sodium 137 Potassium 4.3 Chloride 107 Carbon Dioxide 22 BUN 10 D Creatinine 0.61 L Glucose 115 H Calcium 8.7 Liver Function 03/14/25 Range/Units 05:18 Total Bilirubin 0.3 (0.2-1.3) mg/dL AST 37 H (14-36) U/L ALT 28 (6-35) U/L Alkaline Phosphatase 56 (38-126) U/L Albumin 4.0 (3.5-5.1) g/dL Urine 03/14/25 Range/Units 05:44 Urine Color Yellow (Yellow) Urine Appearance Cloudy H (Clear) Urine pH 5.0 (5.0-9.0) Ur Specific [place] 1.019 (1.001-1.035) Urine Protein Negative (Negative) mg/dL Urine Glucose (UA) Negative (Negative) mg/dL Assessment and Plan Assessment and plan (1) Cholelithiasis: Qualifiers: Cholecystitis presence: without cholecystitis Cholelithiasis location: bile duct Code(s): K80.20 - Calculus of gallbladder without cholecystitis without obstruction Status: Acute Assessment and Plan: - CT abdomen/pelvis, 03/14: 1. Cholelithiasis with mild intra and extrahepatic biliary ductal dilation suggesting either an occult obstructing stone or recently passed stone. Correlate with renal function tests and could consider MRCP for further evaluation as clinically indicated. 2. Partially ruptured 2 cm corpus luteum cyst at the left ovary. - MCRP: Cholelithiasis and choledocholithiasis with 3-4 mm stone in the distal common bile duct which measures up to 5-6 mm in maximal diameter. No gallbladder wall thickening or pericholecystic infiltrate showing to suggest acute cholecystitis. - total bilirubin 0.3, AST 37, ALT 28 - general surgery consulted Consulted GI a regarding common bile duct stones NPO after midnight in case of need for ERCP tomorrow Will need cholecystectomy eventually, if patient tolerates p.o. our current pain she could be discharged and proceed with lap choly IOC - analgesics p.r.n.: Tylenol, [place], morphine - antiemetics p.r.n. - IV fluids: 125 mL/hour - monitor LFTs, WBC, and renal function Plan Diet: Clear liquid, NPO at midnight GI Prophylaxis: N/a DVT Prophylaxis: SCDs IV fluids: 125 mL/hour Lines/Tubes: Peripheral IV Code Status: Full code Quality VTE Prophylaxis VTE prophylaxis: mechanical ordered Hospitalist MIPS Advance Care Plan I have confirmed that the patient's Advanced Care Plan is present, code status is documented, or surrogate decision maker is listed in patient medical record.: Yes Medication Reconciliation I have utilized all available resources to obtain, update and review the patients current medications (includes all prescriptions, OTC, herbals, cannabis, and nutritional supplements).: Yes
--- NOTE | 2025-03-14 16:16 | PM.CNGS ---
Assessment and Plan Assessment and plan (1) Choledocholithiasis with cholecystitis: Code(s): K80.40 - Calculus of bile duct with cholecystitis, unspecified, without obstruction Status: Acute Assessment and Plan: Patient has chronic cholecystitis and choledocholithiasis. Her pain is much improved from this morning. I will consult Gastroenterology regarding common bile duct stones. Would also like Gastroenterology's impression of her diagnosis of celiac disease. I will go ahead and order low fat diet for supper but make her NPO after MN in case GI wants to do ERCP tomorrow. She will eventually need cholecystectomy. I explained this procedure to her. If she tolerates p.o. without recurrent pain, she could be discharged and proceed with lap tessie with IOC. We will follow along with you. History of Present Illness Consult details Consult date: 03/14/25 Reason for consult: abdominal pain Requesting physician: Kailee Davila APRN Narrative: Patient is a 30-year-old woman who started having severe epigastric pain about 3:00 a.m. today. The pain radiated straight through to her back. It awakened her from sleep and she denies ever having pain this severe before. Is was associated with nausea and vomiting. She has had mild, similar pains in the epigastrium which resolved pretty quickly. Nearly all of these episodes of pain have awakened her at night. She promptly came to the emergency room. She was noted to be very tender in the epigastric area. Her white blood cell count was normal at 8700. Her liver function tests were normal except that her AST was just above the upper limit of normal. She had a CT scan of the abdomen and pelvis which showed gallstones with evidence of common bile duct stones as the common bile duct was slightly dilated at 7 mm. She also underwent an MRCP today which did not show cholecystitis but did show a 3-4 mm stone in the common bile duct. She has had been admitted now to the hospitalist and I was asked to see her in consultation regarding her abdominal pain and gallstones. She carries a diagnosis of celiac disease, but does not really follow a gluten free diet. She has had no previous abdominal surgery. She has been started on a clear liquid diet. Both her mother and her brother have had gallbladder disease and cholecystectomy. She does feel better than earlier this morning. She has not had any pain medication since being in the ER. It looks like she did not receive narcotics in the ER, only Toradol and Zofran. Review of Systems Review of Systems: All systems reviewed & are unremarkable except as noted in HPI and below (HPI) [facility] Past Medical History Medical History Celiac disease Family History Family History Other Family history non-contributory Social History Social History Smoking status: Never smoker Alcohol intake: current Drinks per week: 10 Alcohol use details: social Substance use: never Substance use type: does not use Lack of Transportation: No Lack of Food: Never True Current Housing: I Have Housing Concerned About Future Housing: No Difficulty Paying Gas/Electric Bills: No Difficulty Paying for Meds: No Currently Unemployed: No Education: Trade/Vocational Certificate Difficulty w/ Childcare or Family Care: No Gender identity (if verbalized by the patient): Female Spiritual care concerns: No Meds Home Medications and Allergies Home Medications ?Medication ?Instructions ?Recorded ?Confirmed ?Type albuterol sulfate 90 mcg/actuation 90 mcg inhalation DIRECTED 09/19/23 03/14/25 History aerosol inhaler fluoxetine 10 mg capsule 10 mg PO DIRECTED 09/19/23 03/14/25 History Allergies Allergy/AdvReac Type Severity Reaction Status Date / Time No Known Allergies Allergy Verified 03/14/25 09:04 Vital Signs Vital Signs - 24 hr 03/14/25 05:08 03/14/25 05:21 03/14/25 05:28 Temperature 36.4 C L Pulse Rate 67 Respiratory Rate 18 Blood Pressure 98/80 L 111/56 L Pulse Oximetry 100 100 100 Oxygen Delivery Room Air 03/14/25 05:30 03/14/25 05:32 03/14/25 05:53 Temperature Pulse Rate Respiratory Rate Blood Pressure 104/63 Pulse Oximetry 100 100 99 Oxygen Delivery 03/14/25 06:00 03/14/25 06:15 03/14/25 06:30 Temperature Pulse Rate Respiratory Rate Blood Pressure Pulse Oximetry 98 98 100 Oxygen Delivery 03/14/25 06:45 03/14/25 07:00 03/14/25 08:50 Temperature Pulse Rate 68 Respiratory Rate 17 Blood Pressure 112/69 Pulse Oximetry 99 98 98 Oxygen Delivery 03/14/25 09:29 03/14/25 14:00 Temperature 36.1 C L 36.1 C L Pulse Rate 58 L 56 L Respiratory Rate 14 14 Blood Pressure 108/64 99/54 L Pulse Oximetry 100 100 Oxygen Delivery Exam Const: General: comfortable, no acute distress, alert and awake HENMT: Head: normocephalic and atraumatic Mouth: Yes Normal oral and palatal mucosa present Eyes: Conjunctivae: conjunctivae normal Pupils: Equal, round and reactive pupils present EOM: EOMs intact bilaterally Neck: Neck: normal visual inspection, no lymphadenopathy and nontender Resp: Effort & Inspection: normal respiratory effort Auscultation: clear to auscultation bilaterally Cardio: Rate: regular rate Rhythm: regular rhythm Heart sounds: no gallops, no murmurs and no rubs GI: Inspection: normal to inspection, non-distended, scaphoid and no visible herniation GI Palp: Yes Soft to palpation, Yes Tenderness to palpation present (GI) (Epigastrium), No Guarding due to palpation present (GI), No Hepatomegaly present, No Splenomegaly present, No Hernia present and No Palpable mass present Skin: Lesions: no lesions Rashes: no rashes Neuro: General: no focal motor deficits and CN's II-XI intact bilaterally Cranial nerves: Yes Equal, round and reactive pupils present, Yes Bilaterally intact EOM present, Yes facial symmetry and Yes Midline tongue present Speech: normal speech Motor exam (neuro): 5/5 motor strength present throughout and Motor abnormalities not present Extrem: General: no clubbing, cyanosis or edema and edema Psych: Affect: normal affect Thought process: Normal thought process present Insight: Good insight present (Psych) Results Labs 03/14/25 05:18 03/14/25 05:18 Labs: Abnormal lab results 03/14/25 03/14/25 Range/Units 05:18 05:44 Hgb 10.0 L (12.0-15.0) g/dL Hct 33.5 L (37.0-47.0) % MCV 72.0 L (80-100) fl MCH 21.5 L (26-34) pg MCHC 29.9 L (32-36) g/dl RDW 17.2 H (11.5-14.5) % MPV 10.5 H (7.4-10.4) fl Creatinine 0.61 L (0.7-1.0) mg/dL Glucose 115 H (65-110) mg/dL AST 37 H (14-36) U/L Urine Appearance Cloudy H (Clear) Diabetes panel 03/14/25 Range/Units 05:18 Sodium 137 (137-145) mmol/L Potassium 4.3 (3.4-5.0) mmol/L Chloride 107 (98-107) mmol/L Carbon Dioxide 22 (22-30) mmol/L BUN 10 D (7-17) mg/dL Creatinine 0.61 L (0.7-1.0) mg/dL Glucose 115 H (65-110) mg/dL Calcium 8.7 (8.4-10.2) mg/dL AST 37 H (14-36) U/L ALT 28 (6-35) U/L Alkaline Phosphatase 56 (38-126) U/L Total Protein 7.0 (6.3-8.2) g/dL Albumin 4.0 (3.5-5.1) g/dL Calcium panel 03/14/25 Range/Units 05:18 Calcium 8.7 (8.4-10.2) mg/dL Albumin 4.0 (3.5-5.1) g/dL Pituitary panel 03/14/25 Range/Units 05:18 Sodium 137 (137-145) mmol/L Potassium 4.3 (3.4-5.0) mmol/L Chloride 107 (98-107) mmol/L Carbon Dioxide 22 (22-30) mmol/L BUN 10 D (7-17) mg/dL Creatinine 0.61 L (0.7-1.0) mg/dL Glucose 115 H (65-110) mg/dL Calcium 8.7 (8.4-10.2) mg/dL Adrenal panel 03/14/25 Range/Units 05:18 Sodium 137 (137-145) mmol/L Potassium 4.3 (3.4-5.0) mmol/L Chloride 107 (98-107) mmol/L Carbon Dioxide 22 (22-30) mmol/L BUN 10 D (7-17) mg/dL Creatinine 0.61 L (0.7-1.0) mg/dL Glucose 115 H (65-110) mg/dL Calcium 8.7 (8.4-10.2) mg/dL Total Bilirubin 0.3 (0.2-1.3) mg/dL AST 37 H (14-36) U/L ALT 28 (6-35) U/L Alkaline Phosphatase 56 (38-126) U/L Total Protein 7.0 (6.3-8.2) g/dL Albumin 4.0 (3.5-5.1) g/dL All other labs normal.
[2025-03-14] MEDS: SODIUM CHLORIDE 0.9% IV 1,000 ML 80 ML IV CONT (19:24)
[2025-03-14] MEDS: oxyCODONE/ACETAMINOPHEN (*CRX) 5-325 MG TABLET 1 TABLET PO (20:03)
--- NOTE | 2025-03-14 20:05 | PC.NURSE ---
PT C/0 BURNING DURING CALDORLOR INFUSION, RESTARTED IV IN LEFT ARM CONTINUES TO C/O BURNING DURING INFUSION. STOPPED CALDOLOR AND RESTARTED NS WITHOUT BURNING. PERCOCET GIVEN
[2025-03-14] MEDS: MORPHINE SULFATE (*CRX) 4 MG/ML INJ IV PUSH (21:09)
--- NOTE | 2025-03-14 21:18 | PC.NURSE ---
DR CHAVARRIA NOTIFIED OF INCREASED PAIN
[2025-03-15] VITALS (10 sets, daily range): BP systolic 103–124; BP diastolic 52–80; PULSE 56–71; RESP 12–22; TEMP 36.3–36.5; O2SAT 99–100
[2025-03-15 05:03] LABS: Hematocrit 31.0 % (37.0-47.0); Hemoglobin 9.2 g/dL (12.0-15.0); Immature Granulocyte Percent A 0.2 % (0-0.5); Lymphocytes Absolute Auto 2.23 K/mm3 (0.9-3.2); Mean Corpuscular HGB Conc 29.7 g/dl (32-36); Mean Corpuscular Hemoglobin 21.6 pg (26-34); Mean Corpuscular Volume 72.9 fl (80-100); Nucleated Red Blood Cells Absolute Auto 0.000 K/mm3 (0.0-0.012); Nucleated Red Blood Cells Perc 0.0 % (0.0-0.2); Platelet Count Result 247 k/mm3 (150-375); Red Blood Count 4.25 M/mm3 (4.2-5.4); White Blood Count 5.7 K/mm3 (4.5-10.0)
[2025-03-15 05:16] LABS: Alanine Aminotransferase 107 U/L (6-35); Albumin Level 3.2 g/dL (3.5-5.1); Alkaline Phosphatase 68 U/L (38-126); Anion Gap 5 mmol/L (4-12); Aspartate Amino Transferase 139 U/L (14-36); Bilirubin,Total 0.2 mg/dL (0.2-1.3); Blood Urea Nitrogen 12 mg/dL (7-17); Calcium 7.6 mg/dL (8.4-10.2); Carbon Dioxide 21 mmol/L (22-30); Chloride 110 mmol/L (98-107); Estimated CRCL calculation 93 ml/min; Estimated Glomerular Filt Rate > 60; Glucose 79 mg/dL (65-110); Potassium 4.0 mmol/L (3.4-5.0); Sodium 136 mmol/L (137-145); Total Protein 5.8 g/dL (6.3-8.2)
[2025-03-15 05:24] LABS: Hypochromasia 1+; Ovalocytes 1+; Schistocytes None Seen
--- NOTE | 2025-03-15 06:48 | PM.PNGS ---
Progress Note: A&P Assessment and Plan (1) Choledocholithiasis with cholecystitis: Code(s): K80.40 - Calculus of bile duct with cholecystitis, unspecified, without obstruction Status: Acute Assessment and Plan: recurrent pain last night after trying low-fat diet for supper. Will get hepatobiliary scan today. (2) Celiac disease: Code(s): K90.0 - Celiac disease Status: Chronic Assessment and Plan: Does not follow a gluten free diet. (3) Anemia: Qualifiers: Anemia type: unspecified type Qualified Code(s): D64.9 - Anemia, unspecified Code(s): D64.9 - Anemia, unspecified Status: Acute Assessment and Plan: Has low MCV as well. Will check stool for occult blood. Subjective Subjective Date/Time Seen: 03/15/25 06:48 Patient reports: still having pain (Had recurrent epigastric pain last evening after eating low-fat supper. Made NPO and better through the night.), voiding w/o difficulty and afebrile Review of Systems Review of Systems: All systems reviewed & are unremarkable except as noted in HPI and below ( HPI) Exam Const: General: comfortable, alert and awake Nutritional Appearance: well nourished GI: Inspection: normal to inspection and non-distended GI Palp: Yes Soft to palpation and Yes Tenderness to palpation present (GI) ( right upper quadrant, mild, no peritoneal signs) Objective Data Vital Signs Vital Signs: Vital Signs - 24 hr 03/14/25 07:00 03/14/25 08:50 03/14/25 09:29 Temperature 36.1 C L Pulse Rate 68 58 L Respiratory Rate 17 14 Blood Pressure 112/69 108/64 Pulse Oximetry 98 98 100 Oxygen Delivery 03/14/25 14:00 03/14/25 20:10 03/14/25 21:42 Temperature 36.1 C L 36.5 C Pulse Rate 56 L 59 L Respiratory Rate 14 18 Blood Pressure 99/54 L 118/62 Pulse Oximetry 100 95 95 Oxygen Delivery Room Air 03/15/25 04:58 Temperature 36.4 C Pulse Rate 65 Respiratory Rate 20 Blood Pressure 109/53 L Pulse Oximetry 100 Oxygen Delivery Intake/Output Intake/Output: Intake & Output 03/12/25 03/13/25 03/14/25 03/15/25 23:59 23:59 23:59 23:59 Intake Total 1240 0 Balance 1240 0 Meds/Results Medications: Active Medications Generic Name Dose Route Start Last Admin Trade Name Freq PRN Reason Stop Dose Admin Acetaminophen 650 mg 03/14/25 13:13 Acetaminophen 325 Mg Tablet PO Q6H PRN Mild Pain (1-3) or Fever Albuterol 1 puff 03/14/25 13:23 Albuterol Sulfate (*Sp) Aerosol 1 Puff INHALATION PRN PRN ASTHMA Docusate Sodium 100 mg 03/14/25 13:13 Docusate Sodium 100 Mg Capsule PO Q12H PRN Constipation Sodium Chloride 1,000 mls @ 80 mls/hr 03/14/25 08:15 03/14/25 19:24 Normal Saline Iv IV CONT 80 mls/hr .[id number] JOSS Administration Ibuprofen 800 mg in 200 mls @ 400 mls/hr 03/14/25 16:57 Caldolor 800 Mg/200 Ml IVPB Q6H PRN Breakthrough Pain Rated 1-3 or NPO Morphine Sulfate 2 mg 03/14/25 16:57 Morphine Sulfate (*Crx) 2 Mg/Ml Inj IV PUSH Q2H PRN Breakthrough Pain Rated 4-6 or NPO Morphine Sulfate 4 mg 03/14/25 16:57 03/14/25 21:09 Morphine Sulfate (*Crx) 4 Mg/Ml Inj IV PUSH 4 mg Q2H PRN Administration Breakthrough Pain Rated 7-10 or NPO Naloxone HCl 0.1 mg 03/14/25 16:57 Naloxone Hcl 0.4 Mg/Ml Vial IV PUSH Q2M PRN Opiate Reversal Ondansetron HCl 4 mg 03/14/25 08:11 Ondansetron Inj 4 Mg/2 Ml Vial IV PUSH Q4H PRN Nausea Oxycodone/Acetaminophen 1 tablet 03/14/25 16:57 03/14/25 20:03 Oxycodone/Acetaminophen (*Crx) 5-325 Mg Tablet PO 1 tablet Q4H PRN Administration Pain Rated 4-6 Radiology Results: ITS Impressions Abdomen/Pelvis CT 03/14/25 07:20 IMPRESSION: 1. Cholelithiasis with mild intra and extrahepatic biliary ductal dilation suggesting either an occult obstructing stone or recently passed stone. Correlate with renal function tests and could consider MRCP for further evaluation as clinically indicated. 2. Partially ruptured 2 cm corpus luteum cyst at the left ovary. MRCP 03/14/25 14:13 IMPRESSION: 1. Cholelithiasis and choledocholithiasis with 3-4 mm stone in the distal common bile duct which measures up to 5-6 mm in maximal diameter. No gallbladder wall thickening or pericholecystic infiltrate showing to suggest acute cholecystitis. Labs Labs: Laboratory Results - last 24 hr 03/14/25 03/14/25 03/15/25 05:18 05:44 04:46 WBC 5.7 RBC 4.25 Hgb 9.2 L Hct 31.0 L MCV 72.9 L MCH 21.6 L MCHC 29.7 L RDW 17.1 H Plt Count 247 MPV 10.5 H Immature Gran % (Auto) 0.2 Neut % (Auto) 52.1 Lymph % (Auto) 39.1 [place] % (Auto) 6.8 Eos % (Auto) 1.1 Baso % (Auto) 0.7 Lymph # (Auto) 2.23 [place] # (Auto) 0.4 Eos # (Auto) 0.1 Baso # (Auto) 0.0 Abs Immat Gran (auto) 0.01 Absolute Neuts (auto) 3.0 Absolute Nucleated RBC 0.000 Band Neutrophils % Not Reportable Nucleated RBC % 0.0 Platelet Estimate Adequate Hypochromasia 1+ Ovalocytes 1+ Schistocytes None seen Sodium 136 L Potassium 4.0 Chloride 110 H Carbon Dioxide 21 L Anion Gap 5 BUN 12 Creatinine 0.77 Estim Creat Clear Calc 93 Estimated GFR > 60 Glucose 79 Calcium 7.6 L Total Bilirubin 0.2 AST 139 H ALT 107 H Alkaline Phosphatase 68 Total Protein 5.8 L Albumin 3.2 L Lipase 76 Urine Protein Negative
[2025-03-15] MEDS: SODIUM CHLORIDE 0.9% IV 1,000 ML 80 ML IV CONT (08:30)
[2025-03-15] MEDS: MORPHINE SULFATE (*CRX) 4 MG/ML INJ IV PUSH (10:17)
--- NOTE | 2025-03-15 12:29 | PM.IMPN ---
Progress Note: A&P Assessment and Plan (1) Cholelithiasis: Qualifiers: Cholecystitis presence: without cholecystitis Cholelithiasis location: bile duct Code(s): K80.20 - Calculus of gallbladder without cholecystitis without obstruction Status: Acute Assessment and Plan: - CT abdomen/pelvis, 03/14: 1. Cholelithiasis with mild intra and extrahepatic biliary ductal dilation suggesting either an occult obstructing stone or recently passed stone. Correlate with renal function tests and could consider MRCP for further evaluation as clinically indicated. 2. Partially ruptured 2 cm corpus luteum cyst at the left ovary. - MCRP: Cholelithiasis and choledocholithiasis with 3-4 mm stone in the distal common bile duct which measures up to 5-6 mm in maximal diameter. No gallbladder wall thickening or pericholecystic infiltrate showing to suggest acute cholecystitis. - total bilirubin 0.3, AST 37, ALT 28 - general surgery consulted GI consult and plan for ERCP. Patient will eventually need cholecystectomy. General surgery on board - analgesics p.r.n.: Tylenol, [place], morphine - antiemetics p.r.n. - IV fluids: 125 mL/hour - monitor LFTs, WBC, and renal function Plan History of celiac disease. Unclear how this was diagnosed. Anemia microcytic Diet: Clear liquid, NPO at midnight GI Prophylaxis: N/a DVT Prophylaxis: SCDs IV fluids: 125 mL/hour Lines/Tubes: Peripheral IV Code Status: Full code Subjective Date/time seen: 03/15/25 12:29 Interval history: Continues to have right upper quadrant pain with nausea no vomiting. Findings reviewed and discussed with the patient. Review of Systems Review of Systems: All systems reviewed & are unremarkable except as noted in HPI and below Exam Narrative: APPEARANCE: Alert and oriented x3 not in acute distress EYES: EOMI HEENT: Normocephalic, atraumatic, OMM RESPIRATORY: No respiratory distress Clear to auscultation bilaterally with no rhonchi wheezing or rales. CARDIOVASCULAR: Regular rate and rhythm without murmurs rubs or gallops. ABDOMINAL: Soft, tenderness palpation to the epigastrium and right upper quadrant without rebound or guarding MUSCULOSKELETAl: Moves all extremities. No clubbing, cyanosis or edema. NEURO: Awake and alert. Following commands, speech normal, no focal deficits SKIN:: Warm, dry. No rashes lesions or abrasions PSYCHIATRIC: Normal affect/mood, Objective Data Vital Signs Vital Signs: Vital Signs - 24 hr 03/14/25 14:00 03/14/25 20:10 03/14/25 21:42 Temperature 97.0 F L 97.7 F Pulse Rate 56 L 59 L Respiratory Rate 14 18 Blood Pressure 99/54 L 118/62 Pulse Oximetry 100 95 95 Oxygen Delivery Room Air 03/15/25 04:58 Temperature 97.6 F Pulse Rate 65 Respiratory Rate 20 Blood Pressure 109/53 L Pulse Oximetry 100 Oxygen Delivery Intake/Output Intake/Output: Intake & Output 03/12/25 03/13/25 03/14/25 03/15/25 23:59 23:59 23:59 23:59 Intake Total 1240 1000 Balance 1240 1000 Meds/Results Medications: Active Medications Generic Name Dose Route Start Last Admin Trade Name Freq PRN Reason Stop Dose Admin Acetaminophen 650 mg 03/14/25 13:13 Acetaminophen 325 Mg Tablet PO Q6H PRN Mild Pain (1-3) or Fever Albuterol 1 puff 03/14/25 13:23 Albuterol Sulfate (*Sp) Aerosol 1 Puff INHALATION PRN PRN ASTHMA Docusate Sodium 100 mg 03/14/25 13:13 Docusate Sodium 100 Mg Capsule PO Q12H PRN Constipation Sodium Chloride 1,000 mls @ 80 mls/hr 03/14/25 08:15 03/15/25 08:30 Normal Saline Iv IV CONT 80 mls/hr .[id number] JOSS Administration Ibuprofen 800 mg in 200 mls @ 400 mls/hr 03/14/25 16:57 Caldolor 800 Mg/200 Ml IVPB Q6H PRN Breakthrough Pain Rated 1-3 or NPO Morphine Sulfate 2 mg 03/14/25 16:57 Morphine Sulfate (*Crx) 2 Mg/Ml Inj IV PUSH Q2H PRN Breakthrough Pain Rated 4-6 or NPO Morphine Sulfate 4 mg 03/14/25 16:57 03/15/25 10:17 Morphine Sulfate (*Crx) 4 Mg/Ml Inj IV PUSH 4 mg Q2H PRN Administration Breakthrough Pain Rated 7-10 or NPO Naloxone HCl 0.1 mg 03/14/25 16:57 Naloxone Hcl 0.4 Mg/Ml Vial IV PUSH Q2M PRN Opiate Reversal Ondansetron HCl 4 mg 03/14/25 08:11 Ondansetron Inj 4 Mg/2 Ml Vial IV PUSH Q4H PRN Nausea Oxycodone/Acetaminophen 1 tablet 03/14/25 16:57 03/14/25 20:03 Oxycodone/Acetaminophen (*Crx) 5-325 Mg Tablet PO 1 tablet Q4H PRN Administration Pain Rated 4-6 Radiology Results: ITS Impressions Abdomen/Pelvis CT 03/14/25 07:20 IMPRESSION: 1. Cholelithiasis with mild intra and extrahepatic biliary ductal dilation suggesting either an occult obstructing stone or recently passed stone. Correlate with renal function tests and could consider MRCP for further evaluation as clinically indicated. 2. Partially ruptured 2 cm corpus luteum cyst at the left ovary. MRCP 03/14/25 14:13 IMPRESSION: 1. Cholelithiasis and choledocholithiasis with 3-4 mm stone in the distal common bile duct which measures up to 5-6 mm in maximal diameter. No gallbladder wall thickening or pericholecystic infiltrate showing to suggest acute cholecystitis. Labs Labs: Laboratory Results - last 24 hr 03/15/25 04:46 WBC 5.7 RBC 4.25 Hgb 9.2 L Hct 31.0 L MCV 72.9 L MCH 21.6 L MCHC 29.7 L RDW 17.1 H Plt Count 247 MPV 10.5 H Immature Gran % (Auto) 0.2 Neut % (Auto) 52.1 Lymph % (Auto) 39.1 [place] % (Auto) 6.8 Eos % (Auto) 1.1 Baso % (Auto) 0.7 Lymph # (Auto) 2.23 [place] # (Auto) 0.4 Eos # (Auto) 0.1 Baso # (Auto) 0.0 Abs Immat Gran (auto) 0.01 Absolute Neuts (auto) 3.0 Absolute Nucleated RBC 0.000 Band Neutrophils % Not Reportable Nucleated RBC % 0.0 Platelet Estimate Adequate Hypochromasia 1+ Ovalocytes 1+ Schistocytes None seen Sodium 136 L Potassium 4.0 Chloride 110 H Carbon Dioxide 21 L Anion Gap 5 BUN 12 Creatinine 0.77 Estim Creat Clear Calc 93 Estimated GFR > 60 Glucose 79 Calcium 7.6 L Total Bilirubin 0.2 AST 139 H ALT 107 H Alkaline Phosphatase 68 Total Protein 5.8 L Albumin 3.2 L
--- NOTE | 2025-03-15 12:55 | P.PNAN_ITS ---
Anes - Initial Pre Proc Eval Procedure: Operation Date: 03/15/25 15:00 Proposed Procedures p Endoscopic Retro Cholangiopancreatogram - Gaudencio Milner MD Date/Time: 03/15/25 12:55 Surgeon: Nancy Celaya MD Pre Op Diagnosis: Abdominal Pain/Cholelithiasis Patient Data Age: 30 Gender: F Height: 1.63 m Weight: 79 kg Last Vital Signs Temp 36.4 C 03/15/25 04:58 Pulse 65 03/15/25 04:58 Resp 20 03/15/25 04:58 BP 109/53 L 03/15/25 04:58 Pulse Ox 100 03/15/25 04:58 O2 Del Method Room Air 03/14/25 21:42 Allergies Allergy/AdvReac Type Severity Reaction Status Date / Time No Known Allergies Allergy Verified 03/14/25 09:04 Home Medications ?Medication ?Instructions ?Recorded ?Confirmed ?Type albuterol sulfate 90 mcg/actuation 90 mcg inhalation A S DIRECTED 09/19/23 03/14/25 History aerosol inhaler fluoxetine 10 mg capsule 10 mg PO DIRECTED 4 03/14/25 History Laboratory Tests 03/15/25 04:46 WBC 5.7 K/mm3 (4.5-10.0) RBC 4.25 M/mm3 (4.2-5.4) Hgb 9.2 L g/dL (12.0-15.0) Hct 31.0 L % (37.0-47.0) MCV 72.9 L fl (80-100) MCH 21.6 L pg (26-34) MCHC 29.7 L g/dl (32-36) RDW 17.1 H % (11.5-14.5) Plt Count 247 k/mm3 (150-375) MPV 10.5 H fl (7.4-10.4) Immature Gran % (Auto) 0.2 % (0-0.5) Neut % (Auto) 52.1 % (45.5-73.1) Lymph % (Auto) 39.1 % (18.3-44.2) [place] % (Auto) 6.8 % (2.6-8.5) Eos % (Auto) 1.1 % (0-4.4) Baso % (Auto) 0.7 % (0.2-1.2) Lymph # (Auto) 2.23 K/mm3 (0.9-3.2) [place] # (Auto) 0.4 K/mm3 (0.1-0.6) Eos # (Auto) 0.1 K/mm3 (0-0.3) Baso # (Auto) 0.0 K/mm3 (0.0-0.1) Abs Immat Gran (auto) 0.01 K/mm3 (0.00-0.031) Absolute Neuts (auto) 3.0 K/mm3 (1.3-6.7) Absolute Nucleated RBC 0.000 K/mm3 (0.0-0.012) Band Neutrophils % Not Reportable Nucleated RBC % 0.0 % (0.0-0.2) Platelet Estimate Adequate (Adequate) Hypochromasia 1+ Ovalocytes 1+ Schistocytes None seen Sodium 136 L mmol/L (137-145) Potassium 4.0 mmol/L (3.4-5.0) Chloride 110 H mmol/L (98-107) Carbon Dioxide 21 L mmol/L (22-30) Anion Gap 5 mmol/L (4-12) BUN 12 mg/dL (7-17) Creatinine 0.77 mg/dL (0.7-1.0) Estim Creat Clear Calc 93 ml/min Estimated GFR > 60 (59 - ) Glucose 79 mg/dL (65-110) Calcium 7.6 L mg/dL (8.4-10.2) Total Bilirubin 0.2 mg/dL (0.2-1.3) AST 139 H U/L (14-36) ALT 107 H U/L (6-35) Alkaline Phosphatase 68 U/L (38-126) Total Protein 5.8 L g/dL (6.3-8.2) Albumin 3.2 L g/dL (3.5-5.1) Patient hx anesthesia problems: none Family hx anesthesia problems: none Results Review: All pre-operative results and documents have been reviewed as part of the pre- operative evaluation. FORMERLY [facility], [facility] Past Medical History Medical History Celiac disease Family History Family History Other Family history non-contributory Social History Social History (Updated 03/15/25 @ 13:01 by Albert Woodard DO) Smoking status: Never smoker Alcohol intake: current Drinks per week: 10 Alcohol use details: at least 1/day Substance use: never Substance use type: does not use Lack of Transportation: No Lack of Food: Never True Current Housing: I Have Housing Concerned About Future Housing: No Difficulty Paying Gas/Electric Bills: No Difficulty Paying for Meds: No Currently Unemployed: No Education: Trade/Vocational Certificate Difficulty w/ Childcare or Family Care: No Gender identity (if verbalized by the patient): Female Spiritual care concerns: No Anes - Eval Final PreProcedure Day of Procedure 03/15/25 12:55 Patient weight: overweight Heart: regular rate and rhythm Lungs: clear to auscultation Airway: Mallampati scale class 1 Neurological: alert and oriented Last oral intake: >/= 8 hours ASA classification: III Emergent: no Anesthetic plan: proceed Anesthesia type and monitoring: general ETT and standard monitoring Results Review: All pre-operative results and documents have been reviewed as part of the pre- operative evaluation. Informed Consent: The patient's anesthetic plan and its attendant risks and benefits were discussed with the patient/family/POA. Questions were solicited and answers provided to the satisfaction of the patient/family/POA.
[2025-03-15] MEDS: LACTATED RINGERS 1,000 ML 30 ML IV CONT ×2 (13:15→14:00)
--- NOTE | 2025-03-15 13:56 | WPDGICN ---
Assessment and Plan Assessment and plan (1) Choledocholithiasis with cholecystitis: Code(s): K80.40 - Calculus of bile duct with cholecystitis, unspecified, without obstruction Status: Acute Assessment and Plan: reviewed MRCP, discussed with patient that she needs to have ERCP in order to remove bile maryam stones, explained risk and benefits included but not limited to pancreatitis and willing to proceed after ercp she will need interval cholecystectomy to prevent similar episodes, timing per surgery team (2) Abdominal pain: Code(s): R10.9 - Unspecified abdominal pain Status: Acute Assessment and Plan: on iv pain meds prn (3) Elevated liver enzymes: Code(s): R74.8 - Abnormal levels of other serum enzymes Status: Acute Assessment and Plan: probably biliary related (4) Nausea and vomiting in adult: Code(s): R11.2 - Nausea with vomiting, unspecified Status: Acute (5) Celiac disease: Code(s): K90.0 - Celiac disease Status: Chronic Assessment and Plan: we can educate patient later in office regarding diet GI Consult Note Consult date/time: 03/15/25 13:56 Reason for consult: choledocholithiasis HPI: Monisha Rutherford is a 30 year old female here with new onset of severe upper abdominal pain, describes as stabbing, radiating between her shoulder blades/mid to upper back, constant. She also had nausea, vomiting, and diaphoresis. She denies any previous abdominal surgeries or history of gallstones. Last 2 months with intermittent discomfort but she thought that could have been related to celiac disease as she does not follow a strict gluten free diet. ED workup showed: No leukocytosis, creatinine 0.61, transaminases 100-130, normal bili. HCG negative. CT of the abdomen/pelvis showed cholelithiasis with mild intra and extrahepatic biliary ductal dilation, MRCP c/w with small stone in bile duct. Surgery on board. Review of Systems Constitutional: Constitutional: Denies difficulty sleeping Eyes: Eyes: Denies blurry vision ENT: Reports Normal hearing present Cardiovascular: Cardiovascular: Denies chest pain Respiratory: Respiratory: Denies cough Gastrointestinal: Gastrointestinal: Reports abdominal pain, Reports nausea and Reports vomiting Genitourinary: Genitourinary: Denies dysuria Musculoskeletal: Musculoskeletal: Denies neck pain Integumentary/Breasts: Skin/Breast: Denies rash Neurologic: Denies Abnormal speech present Psychiatric: Psychiatric: Denies behavioral changes [facility] Past Medical History Medical History (Updated 03/15/25 @ 16:00 by Gaudencio Milner MD) Nausea and vomiting in adult Elevated liver enzymes Celiac disease Family History Family History Other Family history non-contributory Social History Social History (Updated 03/15/25 @ 13:01 by Albert Woodard DO) Smoking status: Never smoker Alcohol intake: current Drinks per week: 10 Alcohol use details: at least 1/day Substance use: never Substance use type: does not use Lack of Transportation: No Lack of Food: Never True Current Housing: I Have Housing Concerned About Future Housing: No Difficulty Paying Gas/Electric Bills: No Difficulty Paying for Meds: No Currently Unemployed: No Education: Trade/Vocational Certificate Difficulty w/ Childcare or Family Care: No Gender identity (if verbalized by the patient): Female Spiritual care concerns: No Meds Home Medications and Allergies Home Medications ?Medication ?Instructions ?Recorded ?Confirmed ?Type albuterol sulfate 90 mcg/actuation 90 mcg inhalation DIRECTED 09/19/23 03/14/25 History aerosol inhaler fluoxetine 10 mg capsule 10 mg PO DIRECTED 09/19/23 03/14/25 History Allergies Allergy/AdvReac Type Severity Reaction Status Date / Time No Known Allergies Allergy Verified 03/14/25 09:04 Vital Signs Vital Signs - 24 hr 03/14/25 14:00 03/14/25 20:10 03/14/25 21:42 Temperature 97.0 F L 97.7 F Pulse Rate 56 L 59 L Respiratory Rate 14 18 Blood Pressure 99/54 L 118/62 Pulse Oximetry 100 95 95 Oxygen Delivery Room Air 03/15/25 04:58 03/15/25 13:16 Temperature 97.6 F 97.5 F L Pulse Rate 65 66 Respiratory Rate 20 12 Blood Pressure 109/53 L 106/52 L Pulse Oximetry 100 99 Oxygen Delivery Room Air Exam Const: General: comfortable, alert and awake Nutritional Appearance: well nourished HENMT: Face/Nose/Sinus: Normal nares present Eyes: General: appearance normal, both eyes and all related structures Neck: Neck: supple Resp: Effort & Inspection: normal respiratory effort Cardio: Rate: regular rate GI: Inspection: normal to inspection and non-distended GI Palp: Yes Soft to palpation and Yes Tenderness to palpation present (GI) ( right upper quadrant, mild, no peritoneal signs) Skin: General skin exam: normal color Neuro: Speech: normal speech Motor exam (neuro): 5/5 motor strength present throughout Extrem: General: normal to inspection Psych: Mental Status: mental status grossly normal Results Labs 03/15/25 04:46 03/15/25 04:46 Labs: Short CBC 03/15/25 Range/Units 04:46 WBC 5.7 (4.5-10.0) K/mm3 Hgb 9.2 L (12.0-15.0) g/dL Hct 31.0 L (37.0-47.0) % Plt Count 247 (150-375) k/mm3 BMP 03/15/25 04:46 Sodium 136 L Potassium 4.0 Chloride 110 H Carbon Dioxide 21 L BUN 12 Creatinine 0.77 Glucose 79 Calcium 7.6 L Liver Function 03/15/25 Range/Units 04:46 Total Bilirubin 0.2 (0.2-1.3) mg/dL AST 139 H (14-36) U/L ALT 107 H (6-35) U/L Alkaline Phosphatase 68 (38-126) U/L Albumin 3.2 L (3.5-5.1) g/dL
[2025-03-15] MEDS: INDOMETHACIN 50 MG SUPP.RECT RECTAL (14:07)
[2025-03-15 14:11] LABS: Immature Reticulocyte Fraction 22.7 % (3.0-15.9); Iron 28 ug/dL (37-170); Reticulocyte Hemoglobin Conten 22.6 pg (28.2-36.6); Reticulocytes Absolute 0.06 10^6/uL (0.02-0.10)
[2025-03-15 14:25] LABS: Percent Iron Saturation 7 % (20-50)
[2025-03-15 14:47] LABS: Ferritin 5.67 ng/mL (6.24-137)
[2025-03-15 15:26] LABS: Vitamin B12 649.0 pg/mL (239-931)
[2025-03-15] MEDS: ACETAMINOPHEN 325 MG TABLET 650 MG PO (15:35)
[2025-03-15] MEDS: oxyCODONE/ACETAMINOPHEN (*CRX) 5-325 MG TABLET 1 TABLET PO (17:57)
[2025-03-16] MEDS: SODIUM CHLORIDE 0.9% IV 1,000 ML 80 ML IV CONT (00:13)
[2025-03-16 04:20] VITALS: BP 113/65; PULSE 99; RESP 18; TEMP 36.4; O2SAT 52
[2025-03-16 05:15] LABS: Hematocrit 30.8 % (37.0-47.0); Hemoglobin 9.1 g/dL (12.0-15.0); Immature Granulocyte Percent A 0.2 % (0-0.5); Lymphocytes Absolute Auto 1.94 K/mm3 (0.9-3.2); Mean Corpuscular HGB Conc 29.5 g/dl (32-36); Mean Corpuscular Hemoglobin 21.6 pg (26-34); Mean Corpuscular Volume 73.2 fl (80-100); Nucleated Red Blood Cells Absolute Auto 0.000 K/mm3 (0.0-0.012); Nucleated Red Blood Cells Perc 0.0 % (0.0-0.2); Platelet Count Result 267 k/mm3 (150-375); Red Blood Count 4.21 M/mm3 (4.2-5.4); White Blood Count 5.4 K/mm3 (4.5-10.0)
[2025-03-16 05:38] LABS: Alanine Aminotransferase 429 U/L (6-35); Albumin Level 3.6 g/dL (3.5-5.1); Alkaline Phosphatase 95 U/L (38-126); Anion Gap 7 mmol/L (4-12); Aspartate Amino Transferase 564 U/L (14-36); Bilirubin,Total 0.4 mg/dL (0.2-1.3); Blood Urea Nitrogen 5 mg/dL (7-17); Calcium 8.2 mg/dL (8.4-10.2); Carbon Dioxide 24 mmol/L (22-30); Chloride 107 mmol/L (98-107); Estimated CRCL calculation 116 ml/min; Estimated Glomerular Filt Rate > 60; Glucose 80 mg/dL (65-110); Magnesium 2.1 mg/dL (1.6-2.3); Potassium 3.6 mmol/L (3.4-5.0); Sodium 138 mmol/L (137-145); Total Protein 6.3 g/dL (6.3-8.2)
[2025-03-16 05:40] LABS: Microcytosis 1+ (NORMAL)
[2025-03-16 05:41] LABS: Hypochromasia 1+; Ovalocytes 1+; Schistocytes None Seen
[2025-03-16] MEDS: oxyCODONE/ACETAMINOPHEN (*CRX) 5-325 MG TABLET 1 TABLET PO (06:49)
[2025-03-16] MEDS: MORPHINE SULFATE (*CRX) 2 MG/ML INJ IV PUSH ×4 (09:22→21:12)
--- NOTE | 2025-03-16 10:48 | WPDGIPROGNO ---
Progress Note: A&P Assessment and Plan (1) Cholelithiasis: Qualifiers: Cholecystitis presence: without cholecystitis Cholelithiasis location: bile duct Code(s): K80.20 - Calculus of gallbladder without cholecystitis without obstruction Status: Acute Assessment and Plan: The patient's presentation with acute abdominal pain and a sharp rise in liver enzymes (AST and ALT) following an ERCP is concerning for a procedure-related complication. While the normal bilirubin and alkaline phosphatase levels make biliary obstruction less likely, the primary differential diagnosis remains acute cholecystitis, which can be induced by contrast entering the gallbladder during the procedure. Post-ERCP pancreatitis is another possibility, though it's less likely in this case given the clinical picture. To confirm the diagnosis, the plan is to obtain an urgent abdominal sonogram to evaluate the gallbladder and a lipase level to rule out acute pancreatitis. In the meantime, the patient will be kept NPO and a surgical consultation will be obtained to prepare for a possible cholecystectomy if the findings support a diagnosis of acute cholecystitis. Subjective Date/time seen: 03/16/25 10:48 Interval history: the patient has increased abdominal pain after the ERCP yesterday. She states the pain is located in the right upper quadrant radiating to her back. No fever or chills. Exam Narrative: Abdomen: Soft, tender to deep palpation in the right upper quadrant. Rest of the examination within normal limits. Objective Data Vital Signs Vital Signs: Vital Signs - 24 hr 03/15/25 13:16 03/15/25 14:23 03/15/25 14:33 Temperature 97.5 F L 97.4 F L Pulse Rate 66 71 70 Respiratory Rate 12 22 H 18 Blood Pressure 106/52 L 124/62 118/64 Pulse Oximetry 99 100 100 Oxygen Delivery Room Air Simple Face Mask Room Air Oxygen Flow Rate 6 03/15/25 14:43 03/15/25 14:53 03/15/25 15:03 Temperature Pulse Rate 62 65 62 Respiratory Rate 18 20 20 Blood Pressure 122/67 116/80 117/78 Pulse Oximetry 100 100 100 Oxygen Delivery Room Air Room Air Room Air Oxygen Flow Rate 03/15/25 15:13 03/15/25 17:16 03/15/25 20:23 Temperature 97.7 F 97.6 F Pulse Rate 63 63 56 L Respiratory Rate 18 18 18 Blood Pressure 116/64 106/61 103/56 L Pulse Oximetry 100 100 100 Oxygen Delivery Room Air Oxygen Flow Rate 03/16/25 04:20 Temperature 97.6 F Pulse Rate 99 Respiratory Rate 18 Blood Pressure 113/65 Pulse Oximetry 52 L Oxygen Delivery Oxygen Flow Rate Intake/Output Intake/Output: Intake & Output 03/13/25 03/14/25 03/15/25 03/16/25 23:59 23:59 23:59 23:59 Intake Total 1240 2714 340 Output Total 1900 700 Balance 1240 814 -360 Meds/Results Medications: Active Medications Generic Name Dose Route Start Last Admin Trade Name Freq PRN Reason Stop Dose Admin Acetaminophen 650 mg 03/14/25 13:13 03/15/25 15:35 Acetaminophen 325 Mg Tablet PO 650 mg Q6H PRN Administration Mild Pain (1-3) or Fever Albuterol 1 puff 03/14/25 13:23 Albuterol Sulfate (*Sp) Aerosol 1 Puff INHALATION PRN PRN ASTHMA Docusate Sodium 100 mg 03/14/25 13:13 Docusate Sodium 100 Mg Capsule PO Q12H PRN Constipation Fentanyl Citrate 25 mcg 03/15/25 13:01 Fentanyl Citrate Inj (*Crx) 100 Mcg/2 Ml Vial IV PUSH Q2M PRN Pain Sodium Chloride 1,000 mls @ 80 mls/hr 03/14/25 08:15 03/16/25 00:13 Normal Saline Iv IV CONT 80 mls/hr .[id number] JOSS Administration Ibuprofen 800 mg in 200 mls @ 400 mls/hr 03/14/25 16:57 Caldolor 800 Mg/200 Ml IVPB Q6H PRN Breakthrough Pain Rated 1-3 or NPO Morphine Sulfate 2 mg 03/14/25 16:57 03/16/25 09:22 Morphine Sulfate (*Crx) 2 Mg/Ml Inj IV PUSH 2 mg Q2H PRN Administration Breakthrough Pain Rated 4-6 or NPO Morphine Sulfate 4 mg 03/14/25 16:57 03/15/25 10:17 Morphine Sulfate (*Crx) 4 Mg/Ml Inj IV PUSH 4 mg Q2H PRN Administration Breakthrough Pain Rated 7-10 or NPO Naloxone HCl 0.1 mg 03/14/25 16:57 Naloxone Hcl 0.4 Mg/Ml Vial IV PUSH Q2M PRN Opiate Reversal Ondansetron HCl 4 mg 03/14/25 08:11 Ondansetron Inj 4 Mg/2 Ml Vial IV PUSH Q4H PRN Nausea Ondansetron HCl 4 mg 03/15/25 13:01 Ondansetron Inj 4 Mg/2 Ml Vial IV PUSH ONCE PRN Nausea Oxycodone/Acetaminophen 1 tablet 03/14/25 16:57 03/16/25 06:49 Oxycodone/Acetaminophen (*Crx) 5-325 Mg Tablet PO 1 tablet Q4H PRN Administration Pain Rated 4-6 Radiology Results: ITS Impressions Abdomen/Pelvis CT 03/14/25 07:20 IMPRESSION: 1. Cholelithiasis with mild intra and extrahepatic biliary ductal dilation suggesting either an occult obstructing stone or recently passed stone. Correlate with renal function tests and could consider MRCP for further evaluation as clinically indicated. 2. Partially ruptured 2 cm corpus luteum cyst at the left ovary. MRCP 03/14/25 14:13 IMPRESSION: 1. Cholelithiasis and choledocholithiasis with 3-4 mm stone in the distal common bile duct which measures up to 5-6 mm in maximal diameter. No gallbladder wall thickening or pericholecystic infiltrate showing to suggest acute cholecystitis. Endo Retro Cholangiopancreatogram 03/15/25 14:51 IMPRESSION: Fluoroscopy used during ERCP procedure. There are filling defects in the distal common duct which may represent stones or gas. Labs Labs: Laboratory Results - last 24 hr 03/15/25 03/16/25 04:41 04:33 WBC 5.4 RBC 4.21 Hgb 9.1 L Hct 30.8 L MCV 73.2 L MCH 21.6 L MCHC 29.5 L RDW 17.1 H Plt Count 267 MPV 11.0 H Immature Gran % (Auto) 0.2 Neut % (Auto) 56.7 Lymph % (Auto) 36.3 [place] % (Auto) 5.8 Eos % (Auto) 0.4 Baso % (Auto) 0.6 Lymph # (Auto) 1.94 [place] # (Auto) 0.3 Eos # (Auto) 0.0 Baso # (Auto) 0.0 Abs Immat Gran (auto) 0.01 Absolute Neuts (auto) 3.0 Absolute Nucleated RBC 0.000 Band Neutrophils % Not Reportable Nucleated RBC % 0.0 Platelet Estimate Adequate Hypochromasia 1+ Microcytosis 1+ Ovalocytes 1+ Schistocytes None seen Absolute Retic 0.06 Percent Retic 1.29 Immature Retic Fraction 22.7 H Retic Hgb Content 22.6 L Sodium 138 Potassium 3.6 Chloride 107 Carbon Dioxide 24 Anion Gap 7 BUN 5 L D Creatinine 0.60 L Estim Creat Clear Calc 116 Estimated GFR > 60 Glucose 80 Calcium 8.2 L Magnesium 2.1 Iron 28 L TIBC 401 % Saturation 7 L Ferritin 5.67 L Total Bilirubin 0.4 AST 564 H ALT 429 H Alkaline Phosphatase 95 Total Protein 6.3 Albumin 3.6 Vitamin B12 649.0 Folate 4.3
--- NOTE | 2025-03-16 11:03 | WPDPN ---
Progress Note: A&P Assessment and Plan (1) Choledocholithiasis with cholecystitis: Code(s): K80.40 - Calculus of bile duct with cholecystitis, unspecified, without obstruction Status: Acute Assessment and Plan: Status post ERCP with extraction of common bile duct stone by Dr. Holliday yesterday. More back pain and epigastric right upper quadrant pain today with mild elevation of liver enzymes although total bilirubin is still normal. Stat lipase is pending to evaluate for possible post ERCP pancreatitis. Dr. Hill has also ordered an abdominal ultrasound and made the patient NPO. Will defer to his workup and findings to whether she can eat later today. Dr. Marcial plans interval cholecystectomy as an outpatient if she is able to eat over the weekend. Will follow. Subjective Date/time seen: 03/16/25 11:03 Interval history: Patient complaining more back pain and epigastric and right upper quadrant pain today. She had ERCP yesterday by Dr. Holliday and common bile duct stone was removed. Total bilirubin is still normal. AST and ALT are elevated today. Lipase level is pending. She started having more pain this morning with trying to eat oatmeal. Exam GI: Other: Abdomen is soft and nondistended. Mild tenderness to palpation epigastric and right upper quadrant the abdomen. No rebound tenderness. Objective Data Vital Signs Vital Signs: Vital Signs - 24 hr 03/15/25 13:16 03/15/25 14:23 03/15/25 14:33 Temperature 36.4 C L 36.3 C L Pulse Rate 66 71 70 Respiratory Rate 12 22 H 18 Blood Pressure 106/52 L 124/62 118/64 Pulse Oximetry 99 100 100 Oxygen Delivery Room Air Simple Face Mask Room Air Oxygen Flow Rate 6 03/15/25 14:43 03/15/25 14:53 03/15/25 15:03 Temperature Pulse Rate 62 65 62 Respiratory Rate 18 20 20 Blood Pressure 122/67 116/80 117/78 Pulse Oximetry 100 100 100 Oxygen Delivery Room Air Room Air Room Air Oxygen Flow Rate 03/15/25 15:13 03/15/25 17:16 03/15/25 20:23 Temperature 36.5 C 36.4 C Pulse Rate 63 63 56 L Respiratory Rate 18 18 18 Blood Pressure 116/64 106/61 103/56 L Pulse Oximetry 100 100 100 Oxygen Delivery Room Air Oxygen Flow Rate 03/16/25 04:20 Temperature 36.4 C Pulse Rate 99 Respiratory Rate 18 Blood Pressure 113/65 Pulse Oximetry 52 L Oxygen Delivery Oxygen Flow Rate Intake/Output Intake/Output: Intake & Output 03/13/25 03/14/25 03/15/25 03/16/25 23:59 23:59 23:59 23:59 Intake Total 1240 2714 340 Output Total 1900 700 Balance 1240 814 -360 Meds/Results Medications: Active Medications Generic Name Dose Route Start Last Admin Trade Name Freq PRN Reason Stop Dose Admin Acetaminophen 650 mg 03/14/25 13:13 03/15/25 15:35 Acetaminophen 325 Mg Tablet PO 650 mg Q6H PRN Administration Mild Pain (1-3) or Fever Albuterol 1 puff 03/14/25 13:23 Albuterol Sulfate (*Sp) Aerosol 1 Puff INHALATION PRN PRN ASTHMA Docusate Sodium 100 mg 03/14/25 13:13 Docusate Sodium 100 Mg Capsule PO Q12H PRN Constipation Fentanyl Citrate 25 mcg 03/15/25 13:01 Fentanyl Citrate Inj (*Crx) 100 Mcg/2 Ml Vial IV PUSH Q2M PRN Pain Sodium Chloride 1,000 mls @ 80 mls/hr 03/14/25 08:15 03/16/25 00:13 Normal Saline Iv IV CONT 80 mls/hr .[id number] JOSS Administration Ibuprofen 800 mg in 200 mls @ 400 mls/hr 03/14/25 16:57 Caldolor 800 Mg/200 Ml IVPB Q6H PRN Breakthrough Pain Rated 1-3 or NPO Morphine Sulfate 2 mg 03/14/25 16:57 03/16/25 09:22 Morphine Sulfate (*Crx) 2 Mg/Ml Inj IV PUSH 2 mg Q2H PRN Administration Breakthrough Pain Rated 4-6 or NPO Morphine Sulfate 4 mg 03/14/25 16:57 03/15/25 10:17 Morphine Sulfate (*Crx) 4 Mg/Ml Inj IV PUSH 4 mg Q2H PRN Administration Breakthrough Pain Rated 7-10 or NPO Naloxone HCl 0.1 mg 03/14/25 16:57 Naloxone Hcl 0.4 Mg/Ml Vial IV PUSH Q2M PRN Opiate Reversal Ondansetron HCl 4 mg 03/14/25 08:11 Ondansetron Inj 4 Mg/2 Ml Vial IV PUSH Q4H PRN Nausea Ondansetron HCl 4 mg 03/15/25 13:01 Ondansetron Inj 4 Mg/2 Ml Vial IV PUSH ONCE PRN Nausea Oxycodone/Acetaminophen 1 tablet 03/14/25 16:57 03/16/25 06:49 Oxycodone/Acetaminophen (*Crx) 5-325 Mg Tablet PO 1 tablet Q4H PRN Administration Pain Rated 4-6 Radiology Results: ITS Impressions Abdomen/Pelvis CT 03/14/25 07:20 IMPRESSION: 1. Cholelithiasis with mild intra and extrahepatic biliary ductal dilation suggesting either an occult obstructing stone or recently passed stone. Correlate with renal function tests and could consider MRCP for further evaluation as clinically indicated. 2. Partially ruptured 2 cm corpus luteum cyst at the left ovary. MRCP 03/14/25 14:13 IMPRESSION: 1. Cholelithiasis and choledocholithiasis with 3-4 mm stone in the distal common bile duct which measures up to 5-6 mm in maximal diameter. No gallbladder wall thickening or pericholecystic infiltrate showing to suggest acute cholecystitis. Endo Retro Cholangiopancreatogram 03/15/25 14:51 IMPRESSION: Fluoroscopy used during ERCP procedure. There are filling defects in the distal common duct which may represent stones or gas. Labs Labs: Laboratory Results - last 24 hr 03/15/25 03/16/25 04:41 04:33 WBC 5.4 RBC 4.21 Hgb 9.1 L Hct 30.8 L MCV 73.2 L MCH 21.6 L MCHC 29.5 L RDW 17.1 H Plt Count 267 MPV 11.0 H Immature Gran % (Auto) 0.2 Neut % (Auto) 56.7 Lymph % (Auto) 36.3 [place] % (Auto) 5.8 Eos % (Auto) 0.4 Baso % (Auto) 0.6 Lymph # (Auto) 1.94 [place] # (Auto) 0.3 Eos # (Auto) 0.0 Baso # (Auto) 0.0 Abs Immat Gran (auto) 0.01 Absolute Neuts (auto) 3.0 Absolute Nucleated RBC 0.000 Band Neutrophils % Not Reportable Nucleated RBC % 0.0 Platelet Estimate Adequate Hypochromasia 1+ Microcytosis 1+ Ovalocytes 1+ Schistocytes None seen Absolute Retic 0.06 Percent Retic 1.29 Immature Retic Fraction 22.7 H Retic Hgb Content 22.6 L Sodium 138 Potassium 3.6 Chloride 107 Carbon Dioxide 24 Anion Gap 7 BUN 5 L D Creatinine 0.60 L Estim Creat Clear Calc 116 Estimated GFR > 60 Glucose 80 Calcium 8.2 L Magnesium 2.1 Iron 28 L TIBC 401 % Saturation 7 L Ferritin 5.67 L Total Bilirubin 0.4 AST 564 H ALT 429 H Alkaline Phosphatase 95 Total Protein 6.3 Albumin 3.6 Vitamin B12 649.0 Folate 4.3
[2025-03-16 11:58] LABS: Lipase 959 U/L (23-300)
--- NOTE | 2025-03-16 12:03 | PM.IMPN ---
Progress Note: A&P Assessment and Plan (1) Cholelithiasis: Qualifiers: Cholecystitis presence: without cholecystitis Cholelithiasis location: bile duct Code(s): K80.20 - Calculus of gallbladder without cholecystitis without obstruction Status: Acute Assessment and Plan: - CT abdomen/pelvis, 03/14: 1. Cholelithiasis with mild intra and extrahepatic biliary ductal dilation suggesting either an occult obstructing stone or recently passed stone. Correlate with renal function tests and could consider MRCP for further evaluation as clinically indicated. 2. Partially ruptured 2 cm corpus luteum cyst at the left ovary. - MCRP: Cholelithiasis and choledocholithiasis with 3-4 mm stone in the distal common bile duct which measures up to 5-6 mm in maximal diameter. No gallbladder wall thickening or pericholecystic infiltrate showing to suggest acute cholecystitis. - total bilirubin 0.3, AST 37, ALT 28 - general surgery consulted GI consult and status post ERCP with removal of CBD stones 03/15/2025 Worsened pain post ERCP with elevated liver enzymes and elevated lipase suggestive of post ERCP pancreatitis Patient will eventually need cholecystectomy. General surgery on board and discussed with them. Planned interval cholecystectomy. Ultrasound abdomen is ordered shows findings of acute cholecystitis will place on IV antibiotics. - analgesics p.r.n.: Tylenol, [place], morphine - antiemetics p.r.n. - IV fluids: 125 mL/hour - monitor LFTs, WBC, and renal function Plan History of celiac disease. Unclear how this was diagnosed. Anemia microcytic Diet: Clear liquid, NPO at midnight GI Prophylaxis: N/a DVT Prophylaxis: SCDs IV fluids: 125 mL/hour Lines/Tubes: Peripheral IV Code Status: Full code Subjective Date/time seen: 03/16/25 12:03 Interval history: Overnight he complained of more right upper quadrant pain and right sided back pain some nausea no vomiting. Remains afebrile. Labs reviewed. Review of Systems Review of Systems: All systems reviewed & are unremarkable except as noted in HPI and below Exam Narrative: APPEARANCE: Alert and oriented x3 not in acute distress EYES: EOMI HEENT: Normocephalic, atraumatic, OMM RESPIRATORY: No respiratory distress Clear to auscultation bilaterally with no rhonchi wheezing or rales. CARDIOVASCULAR: Regular rate and rhythm without murmurs rubs or gallops. ABDOMINAL: Soft, tenderness palpation to the epigastrium and right upper quadrant without rebound or guarding MUSCULOSKELETAl: Moves all extremities. No clubbing, cyanosis or edema. NEURO: Awake and alert. Following commands, speech normal, no focal deficits SKIN:: Warm, dry. No rashes lesions or abrasions PSYCHIATRIC: Normal affect/mood, Objective Data Vital Signs Vital Signs: Vital Signs - 24 hr 03/15/25 13:16 03/15/25 14:23 03/15/25 14:33 Temperature 97.5 F L 97.4 F L Pulse Rate 66 71 70 Respiratory Rate 12 22 H 18 Blood Pressure 106/52 L 124/62 118/64 Pulse Oximetry 99 100 100 Oxygen Delivery Room Air Simple Face Mask Room Air Oxygen Flow Rate 6 03/15/25 14:43 03/15/25 14:53 03/15/25 15:03 Temperature Pulse Rate 62 65 62 Respiratory Rate 18 20 20 Blood Pressure 122/67 116/80 117/78 Pulse Oximetry 100 100 100 Oxygen Delivery Room Air Room Air Room Air Oxygen Flow Rate 03/15/25 15:13 03/15/25 17:16 03/15/25 20:23 Temperature 97.7 F 97.6 F Pulse Rate 63 63 56 L Respiratory Rate 18 18 18 Blood Pressure 116/64 106/61 103/56 L Pulse Oximetry 100 100 100 Oxygen Delivery Room Air Oxygen Flow Rate 03/16/25 04:20 03/16/25 08:00 Temperature 97.6 F Pulse Rate 99 Respiratory Rate 18 Blood Pressure 113/65 Pulse Oximetry 52 L Oxygen Delivery Room Air Oxygen Flow Rate Intake/Output Intake/Output: Intake & Output 03/13/25 03/14/25 03/15/25 03/16/25 23:59 23:59 23:59 23:59 Intake Total 1240 2714 340 Output Total 1900 700 Balance 1240 814 -360 Meds/Results Medications: Active Medications Generic Name Dose Route Start Last Admin Trade Name Freq PRN Reason Stop Dose Admin Acetaminophen 650 mg 03/14/25 13:13 03/15/25 15:35 Acetaminophen 325 Mg Tablet PO 650 mg Q6H PRN Administration Mild Pain (1-3) or Fever Albuterol 1 puff 03/14/25 13:23 Albuterol Sulfate (*Sp) Aerosol 1 Puff INHALATION PRN PRN ASTHMA Docusate Sodium 100 mg 03/14/25 13:13 Docusate Sodium 100 Mg Capsule PO Q12H PRN Constipation Fentanyl Citrate 25 mcg 03/15/25 13:01 Fentanyl Citrate Inj (*Crx) 100 Mcg/2 Ml Vial IV PUSH Q2M PRN Pain Sodium Chloride 1,000 mls @ 80 mls/hr 03/14/25 08:15 03/16/25 00:13 Normal Saline Iv IV CONT 80 mls/hr .[id number] JOSS Administration Ibuprofen 800 mg in 200 mls @ 400 mls/hr 03/14/25 16:57 Caldolor 800 Mg/200 Ml IVPB Q6H PRN Breakthrough Pain Rated 1-3 or NPO Morphine Sulfate 2 mg 03/14/25 16:57 03/16/25 09:22 Morphine Sulfate (*Crx) 2 Mg/Ml Inj IV PUSH 2 mg Q2H PRN Administration Breakthrough Pain Rated 4-6 or NPO Morphine Sulfate 4 mg 03/14/25 16:57 03/15/25 10:17 Morphine Sulfate (*Crx) 4 Mg/Ml Inj IV PUSH 4 mg Q2H PRN Administration Breakthrough Pain Rated 7-10 or NPO Naloxone HCl 0.1 mg 03/14/25 16:57 Naloxone Hcl 0.4 Mg/Ml Vial IV PUSH Q2M PRN Opiate Reversal Ondansetron HCl 4 mg 03/14/25 08:11 Ondansetron Inj 4 Mg/2 Ml Vial IV PUSH Q4H PRN Nausea Ondansetron HCl 4 mg 03/15/25 13:01 Ondansetron Inj 4 Mg/2 Ml Vial IV PUSH ONCE PRN Nausea Oxycodone/Acetaminophen 1 tablet 03/14/25 16:57 03/16/25 06:49 Oxycodone/Acetaminophen (*Crx) 5-325 Mg Tablet PO 1 tablet Q4H PRN Administration Pain Rated 4-6 Radiology Results: ITS Impressions Abdomen/Pelvis CT 03/14/25 07:20 IMPRESSION: 1. Cholelithiasis with mild intra and extrahepatic biliary ductal dilation suggesting either an occult obstructing stone or recently passed stone. Correlate with renal function tests and could consider MRCP for further evaluation as clinically indicated. 2. Partially ruptured 2 cm corpus luteum cyst at the left ovary. MRCP 03/14/25 14:13 IMPRESSION: 1. Cholelithiasis and choledocholithiasis with 3-4 mm stone in the distal common bile duct which measures up to 5-6 mm in maximal diameter. No gallbladder wall thickening or pericholecystic infiltrate showing to suggest acute cholecystitis. Endo Retro Cholangiopancreatogram 03/15/25 14:51 IMPRESSION: Fluoroscopy used during ERCP procedure. There are filling defects in the distal common duct which may represent stones or gas. Labs Labs: Laboratory Results - last 24 hr 03/15/25 03/16/25 03/16/25 04:41 04:33 04:33 WBC 5.4 RBC 4.21 Hgb 9.1 L Hct 30.8 L MCV 73.2 L MCH 21.6 L MCHC 29.5 L RDW 17.1 H Plt Count 267 MPV 11.0 H Immature Gran % (Auto) 0.2 Neut % (Auto) 56.7 Lymph % (Auto) 36.3 [place] % (Auto) 5.8 Eos % (Auto) 0.4 Baso % (Auto) 0.6 Lymph # (Auto) 1.94 [place] # (Auto) 0.3 Eos # (Auto) 0.0 Baso # (Auto) 0.0 Abs Immat Gran (auto) 0.01 Absolute Neuts (auto) 3.0 Absolute Nucleated RBC 0.000 Band Neutrophils % Not Reportable Nucleated RBC % 0.0 Platelet Estimate Adequate Hypochromasia 1+ Microcytosis 1+ Ovalocytes 1+ Schistocytes None seen Absolute Retic 0.06 Percent Retic 1.29 Immature Retic Fraction 22.7 H Retic Hgb Content 22.6 L Sodium 138 Potassium 3.6 Chloride 107 Carbon Dioxide 24 Anion Gap 7 BUN 5 L D Creatinine 0.60 L Estim Creat Clear Calc 116 Estimated GFR > 60 Glucose 80 Calcium 8.2 L Magnesium 2.1 Iron 28 L TIBC 401 % Saturation 7 L Ferritin 5.67 L Total Bilirubin 0.4 AST 564 H ALT 429 H Alkaline Phosphatase 95 Total Protein 6.3 Albumin 3.6 Lipase 959 H Cancelled Vitamin B12 649.0 Folate 4.3
[2025-03-16] MEDS: LACTATED RINGERS 1,000 ML 150 ML (12:26)
[2025-03-16] MEDS: LACTATED RINGERS 1,000 ML 150 ML IV CONT ×2 (12:28→18:49)
[2025-03-16 13:20] VITALS: BP 110/64; PULSE 63; RESP 18; TEMP 36.3; O2SAT 100
[2025-03-16 20:00] VITALS: BP 100/52; PULSE 60; RESP 18; TEMP 36.8; O2SAT 100
[2025-03-16] MEDS: IBUPROFEN IV 800 MG/200 ML 800 MG/200 ML BAG 400 MG IVPB (21:08)
[2025-03-16 23:38] VITALS: O2SAT 100
[2025-03-17] MEDS: LACTATED RINGERS 1,000 ML 150 ML IV CONT ×2 (01:30→08:37)
[2025-03-17 04:58] LABS: Hematocrit 32.7 % (37.0-47.0); Hemoglobin 9.7 g/dL (12.0-15.0); Immature Granulocyte Percent A 0.2 % (0-0.5); Lymphocytes Absolute Auto 1.69 K/mm3 (0.9-3.2); Mean Corpuscular HGB Conc 29.7 g/dl (32-36); Mean Corpuscular Hemoglobin 21.4 pg (26-34); Mean Corpuscular Volume 72.0 fl (80-100); Nucleated Red Blood Cells Absolute Auto 0.000 K/mm3 (0.0-0.012); Nucleated Red Blood Cells Perc 0.0 % (0.0-0.2); Platelet Count Result 280 k/mm3 (150-375); Red Blood Count 4.54 M/mm3 (4.2-5.4); White Blood Count 5.4 K/mm3 (4.5-10.0)
[2025-03-17] MEDS: IBUPROFEN IV 800 MG/200 ML 800 MG/200 ML BAG 400 MG IVPB (04:58)
[2025-03-17] MEDS: MORPHINE SULFATE (*CRX) 2 MG/ML INJ IV PUSH (05:00)
[2025-03-17 05:21] LABS: Alanine Aminotransferase 437 U/L (6-35); Albumin Level 3.7 g/dL (3.5-5.1); Alkaline Phosphatase 101 U/L (38-126); Anion Gap 6 mmol/L (4-12); Anisocytosis 1+; Aspartate Amino Transferase 292 U/L (14-36); Bilirubin,Total 0.5 mg/dL (0.2-1.3); Blood Urea Nitrogen 5 mg/dL (7-17); Calcium 8.8 mg/dL (8.4-10.2); Carbon Dioxide 25 mmol/L (22-30); Chloride 106 mmol/L (98-107); Estimated CRCL calculation 113 ml/min; Estimated Glomerular Filt Rate > 60; Glucose 80 mg/dL (65-110); Hypochromasia 1+; Lipase 93 U/L (23-300); Magnesium 1.8 mg/dL (1.6-2.3); Microcytosis 1+ (NORMAL); Ovalocytes 1+; Potassium 3.8 mmol/L (3.4-5.0); Schistocytes None Seen; Sodium 137 mmol/L (137-145); Total Protein 6.6 g/dL (6.3-8.2)
[2025-03-17 06:00] VITALS: BP 95/57; PULSE 64; RESP 18; TEMP 36.8; O2SAT 97
--- NOTE | 2025-03-17 09:20 | WPDGIPROGNO ---
Progress Note: A&P Assessment and Plan (1) Choledocholithiasis with cholecystitis: Code(s): K80.40 - Calculus of bile duct with cholecystitis, unspecified, without obstruction Status: Acute Assessment and Plan: The patient is doing very well this morning with no abdominal pain or fever. Lab results show significant improvement, with the AST decreasing from 564 to 292 and the lipase level normalizing from 900 to 93. The elevated lipase was likely due to ERCP manipulation rather than pancreatitis. While the ALT remains stable at around 437, bilirubin and alkaline phosphatase levels are normal. The surgical team evaluated the patient yesterday, and a laparoscopic cholecystectomy is scheduled as an outpatient procedure. We will advance the patient to a soft diet today to assess oral tolerance. A final set of labs will be drawn tomorrow morning before the patient is discharged home. (2) Elevated liver enzymes: Code(s): R74.8 - Abnormal levels of other serum enzymes Status: Acute (3) Cholelithiasis: Qualifiers: Cholecystitis presence: without cholecystitis Cholelithiasis location: bile duct Code(s): K80.20 - Calculus of gallbladder without cholecystitis without obstruction Status: Acute Subjective Date/time seen: 03/17/25 09:20 Objective Data Vital Signs Vital Signs: Vital Signs - 24 hr 03/16/25 13:20 03/16/25 20:00 03/16/25 20:00 Temperature 97.3 F L 98.2 F Pulse Rate 63 60 Respiratory Rate 18 18 Blood Pressure 110/64 100/52 L Pulse Oximetry 100 100 100 Oxygen Delivery Room Air 03/16/25 23:38 03/17/25 06:00 Temperature 98.2 F Pulse Rate 64 Respiratory Rate 18 Blood Pressure 95/57 L Pulse Oximetry 100 97 Oxygen Delivery Room Air Intake/Output Intake/Output: Intake & Output 03/14/25 03/15/25 03/16/25 03/17/25 23:59 23:59 23:59 23:59 Intake Total 1240 2714 1958.5 2200 Output Total 1900 700 2 Balance 2863 828 3363.5 2198 Meds/Results Medications: Active Medications Generic Name Dose Route Start Last Admin Trade Name Freq PRN Reason Stop Dose Admin Acetaminophen 650 mg 03/14/25 13:13 03/15/25 15:35 Acetaminophen 325 Mg Tablet PO 650 mg Q6H PRN Administration Mild Pain (1-3) or Fever Albuterol 1 puff 03/14/25 13:23 Albuterol Sulfate (*Sp) Aerosol 1 Puff INHALATION PRN PRN ASTHMA Docusate Sodium 100 mg 03/14/25 13:13 Docusate Sodium 100 Mg Capsule PO Q12H PRN Constipation Fentanyl Citrate 25 mcg 03/15/25 13:01 Fentanyl Citrate Inj (*Crx) 100 Mcg/2 Ml Vial IV PUSH Q2M PRN Pain Ibuprofen 800 mg in 200 mls @ 400 mls/hr 03/14/25 16:57 03/17/25 05:28 Caldolor 800 Mg/200 Ml IVPB Infused Q6H PRN Infusion Breakthrough Pain Rated 1-3 or NPO Lactated Ringer's 1,000 mls @ 150 mls/hr 03/16/25 12:25 03/17/25 08:37 Lr - Lactated Ringers Iv IV CONT 150 mls/hr .[id number] JOSS Administration Morphine Sulfate 2 mg 03/14/25 16:57 03/17/25 05:00 Morphine Sulfate (*Crx) 2 Mg/Ml Inj IV PUSH 2 mg Q2H PRN Administration Breakthrough Pain Rated 4-6 or NPO Morphine Sulfate 4 mg 03/14/25 16:57 03/15/25 10:17 Morphine Sulfate (*Crx) 4 Mg/Ml Inj IV PUSH 4 mg Q2H PRN Administration Breakthrough Pain Rated 7-10 or NPO Naloxone HCl 0.1 mg 03/14/25 16:57 Naloxone Hcl 0.4 Mg/Ml Vial IV PUSH Q2M PRN Opiate Reversal Ondansetron HCl 4 mg 03/14/25 08:11 Ondansetron Inj 4 Mg/2 Ml Vial IV PUSH Q4H PRN Nausea Ondansetron HCl 4 mg 03/15/25 13:01 Ondansetron Inj 4 Mg/2 Ml Vial IV PUSH ONCE PRN Nausea Oxycodone/Acetaminophen 1 tablet 03/14/25 16:57 03/16/25 06:49 Oxycodone/Acetaminophen (*Crx) 5-325 Mg Tablet PO 1 tablet Q4H PRN Administration Pain Rated 4-6 Radiology Results: ITS Impressions Abdomen/Pelvis CT 03/14/25 07:20 IMPRESSION: 1. Cholelithiasis with mild intra and extrahepatic biliary ductal dilation suggesting either an occult obstructing stone or recently passed stone. Correlate with renal function tests and could consider MRCP for further evaluation as clinically indicated. 2. Partially ruptured 2 cm corpus luteum cyst at the left ovary. MRCP 03/14/25 14:13 IMPRESSION: 1. Cholelithiasis and choledocholithiasis with 3-4 mm stone in the distal common bile duct which measures up to 5-6 mm in maximal diameter. No gallbladder wall thickening or pericholecystic infiltrate showing to suggest acute cholecystitis. Endo Retro Cholangiopancreatogram 03/15/25 14:51 IMPRESSION: Fluoroscopy used during ERCP procedure. There are filling defects in the distal common duct which may represent stones or gas. Abdomen Ultrasound 03/16/25 15:27 IMPRESSION: 1. Cholelithiasis within the normal-appearing gallbladder with no abnormal dilation, wall thickening or sonographic Orr sign to suggest acute cholecystitis. Labs Labs: Laboratory Results - last 24 hr 03/16/25 03/16/25 03/17/25 04:33 04:33 04:40 WBC 5.4 RBC 4.54 Hgb 9.7 L Hct 32.7 L MCV 72.0 L MCH 21.4 L MCHC 29.7 L RDW 17.3 H Plt Count 280 MPV 10.6 H Immature Gran % (Auto) 0.2 Neut % (Auto) 60.8 Lymph % (Auto) 31.5 [place] % (Auto) 6.0 Eos % (Auto) 0.9 Baso % (Auto) 0.6 Lymph # (Auto) 1.69 [place] # (Auto) 0.3 Eos # (Auto) 0.1 Baso # (Auto) 0.0 Abs Immat Gran (auto) 0.01 Absolute Neuts (auto) 3.3 Absolute Nucleated RBC 0.000 Band Neutrophils % Not Reportable Nucleated RBC % 0.0 Platelet Estimate Adequate Hypochromasia 1+ Anisocytosis 1+ Microcytosis 1+ Ovalocytes 1+ Schistocytes None seen Sodium 137 Potassium 3.8 Chloride 106 Carbon Dioxide 25 Anion Gap 6 BUN 5 L Creatinine 0.62 L Estim Creat Clear Calc 113 Estimated GFR > 60 Glucose 80 Calcium 8.8 Magnesium 1.8 Total Bilirubin 0.5 AST 292 H ALT 437 H Alkaline Phosphatase 101 Total Protein 6.6 Albumin 3.7 Lipase 959 H Cancelled 93
--- NOTE | 2025-03-17 11:43 | WPDPN ---
Progress Note: A&P Assessment and Plan (1) Choledocholithiasis with cholecystitis: Code(s): K80.40 - Calculus of bile duct with cholecystitis, unspecified, without obstruction Status: Acute Assessment and Plan: Patient's abdominal pain today is much better and her lipase is now normalized after the ERCP yesterday and stone extraction. Abdominal ultrasound performed yesterday has ordered by GI showed cholelithiasis but no acute cholecystitis. Diet has been advanced. She can tolerate diet today the plan will be to discharge her home today with follow-up with Dr. Marcial in the office to schedule a interval laparoscopic cholecystectomy. Patient can follow-up with Dr. Marcial the office in 1 week. Subjective Date/time seen: 03/17/25 11:43 Interval history: Patient feels much better today. Not much abdominal pain. Waiting to try solid food today diet has been ordered by GI. Lipase increased to almost 1000 yesterday after the ERCP. That has now decreased to normal levels today. Exam GI: Other: Abdomen is soft and nondistended. Minimal tenderness to palpation right upper quadrant and epigastric region. Exam is relatively benign. Objective Data Vital Signs Vital Signs: Vital Signs - 24 hr 03/16/25 13:20 03/16/25 20:00 03/16/25 20:00 Temperature 36.3 C L 36.8 C Pulse Rate 63 60 Respiratory Rate 18 18 Blood Pressure 110/64 100/52 L Pulse Oximetry 100 100 100 Oxygen Delivery Room Air 03/16/25 23:38 03/17/25 06:00 03/17/25 08:00 Temperature 36.8 C Pulse Rate 64 Respiratory Rate 18 Blood Pressure 95/57 L Pulse Oximetry 100 97 Oxygen Delivery Room Air Room Air Intake/Output Intake/Output: Intake & Output 03/14/25 03/15/25 03/16/25 03/17/25 23:59 23:59 23:59 23:59 Intake Total 1240 2714 1958.5 2200 Output Total 1900 700 2 Balance 8442 826 0026.5 2198 Meds/Results Medications: Active Medications Generic Name Dose Route Start Last Admin Trade Name Freq PRN Reason Stop Dose Admin Acetaminophen 650 mg 03/14/25 13:13 03/15/25 15:35 Acetaminophen 325 Mg Tablet PO 650 mg Q6H PRN Administration Mild Pain (1-3) or Fever Albuterol 1 puff 03/14/25 13:23 Albuterol Sulfate (*Sp) Aerosol 1 Puff INHALATION PRN PRN ASTHMA Docusate Sodium 100 mg 03/14/25 13:13 Docusate Sodium 100 Mg Capsule PO Q12H PRN Constipation Fentanyl Citrate 25 mcg 03/15/25 13:01 Fentanyl Citrate Inj (*Crx) 100 Mcg/2 Ml Vial IV PUSH Q2M PRN Pain Ibuprofen 800 mg in 200 mls @ 400 mls/hr 03/14/25 16:57 03/17/25 05:28 Caldolor 800 Mg/200 Ml IVPB Infused Q6H PRN Infusion Breakthrough Pain Rated 1-3 or NPO Morphine Sulfate 2 mg 03/14/25 16:57 03/17/25 05:00 Morphine Sulfate (*Crx) 2 Mg/Ml Inj IV PUSH 2 mg Q2H PRN Administration Breakthrough Pain Rated 4-6 or NPO Morphine Sulfate 4 mg 03/14/25 16:57 03/15/25 10:17 Morphine Sulfate (*Crx) 4 Mg/Ml Inj IV PUSH 4 mg Q2H PRN Administration Breakthrough Pain Rated 7-10 or NPO Naloxone HCl 0.1 mg 03/14/25 16:57 Naloxone Hcl 0.4 Mg/Ml Vial IV PUSH Q2M PRN Opiate Reversal Ondansetron HCl 4 mg 03/14/25 08:11 Ondansetron Inj 4 Mg/2 Ml Vial IV PUSH Q4H PRN Nausea Ondansetron HCl 4 mg 03/15/25 13:01 Ondansetron Inj 4 Mg/2 Ml Vial IV PUSH ONCE PRN Nausea Oxycodone/Acetaminophen 1 tablet 03/14/25 16:57 03/16/25 06:49 Oxycodone/Acetaminophen (*Crx) 5-325 Mg Tablet PO 1 tablet Q4H PRN Administration Pain Rated 4-6 Radiology Results: ITS Impressions Abdomen/Pelvis CT 03/14/25 07:20 IMPRESSION: 1. Cholelithiasis with mild intra and extrahepatic biliary ductal dilation suggesting either an occult obstructing stone or recently passed stone. Correlate with renal function tests and could consider MRCP for further evaluation as clinically indicated. 2. Partially ruptured 2 cm corpus luteum cyst at the left ovary. MRCP 03/14/25 14:13 IMPRESSION: 1. Cholelithiasis and choledocholithiasis with 3-4 mm stone in the distal common bile duct which measures up to 5-6 mm in maximal diameter. No gallbladder wall thickening or pericholecystic infiltrate showing to suggest acute cholecystitis. Endo Retro Cholangiopancreatogram 03/15/25 14:51 IMPRESSION: Fluoroscopy used during ERCP procedure. There are filling defects in the distal common duct which may represent stones or gas. Abdomen Ultrasound 03/16/25 15:27 IMPRESSION: 1. Cholelithiasis within the normal-appearing gallbladder with no abnormal dilation, wall thickening or sonographic Orr sign to suggest acute cholecystitis. Labs Labs: Laboratory Results - last 24 hr 03/16/25 03/16/25 03/17/25 04:33 04:33 04:40 WBC 5.4 RBC 4.54 Hgb 9.7 L Hct 32.7 L MCV 72.0 L MCH 21.4 L MCHC 29.7 L RDW 17.3 H Plt Count 280 MPV 10.6 H Immature Gran % (Auto) 0.2 Neut % (Auto) 60.8 Lymph % (Auto) 31.5 [place] % (Auto) 6.0 Eos % (Auto) 0.9 Baso % (Auto) 0.6 Lymph # (Auto) 1.69 [place] # (Auto) 0.3 Eos # (Auto) 0.1 Baso # (Auto) 0.0 Abs Immat Gran (auto) 0.01 Absolute Neuts (auto) 3.3 Absolute Nucleated RBC 0.000 Band Neutrophils % Not Reportable Nucleated RBC % 0.0 Platelet Estimate Adequate Hypochromasia 1+ Anisocytosis 1+ Microcytosis 1+ Ovalocytes 1+ Schistocytes None seen Sodium 137 Potassium 3.8 Chloride 106 Carbon Dioxide 25 Anion Gap 6 BUN 5 L Creatinine 0.62 L Estim Creat Clear Calc 113 Estimated GFR > 60 Glucose 80 Calcium 8.8 Magnesium 1.8 Total Bilirubin 0.5 AST 292 H ALT 437 H Alkaline Phosphatase 101 Total Protein 6.6 Albumin 3.7 Lipase 959 H Cancelled 93
--- NOTE | 2025-03-17 12:37 | PM.IMPN ---
Progress Note: A&P Assessment and Plan (1) Cholelithiasis: Qualifiers: Cholecystitis presence: without cholecystitis Cholelithiasis location: bile duct Code(s): K80.20 - Calculus of gallbladder without cholecystitis without obstruction Status: Acute Assessment and Plan: - CT abdomen/pelvis, 03/14: 1. Cholelithiasis with mild intra and extrahepatic biliary ductal dilation suggesting either an occult obstructing stone or recently passed stone. Correlate with renal function tests and could consider MRCP for further evaluation as clinically indicated. 2. Partially ruptured 2 cm corpus luteum cyst at the left ovary. - MCRP: Cholelithiasis and choledocholithiasis with 3-4 mm stone in the distal common bile duct which measures up to 5-6 mm in maximal diameter. No gallbladder wall thickening or pericholecystic infiltrate showing to suggest acute cholecystitis. - total bilirubin 0.3, AST 37, ALT 28 - general surgery consulted GI consult and status post ERCP with removal of CBD stones 03/15/2025 Worsened pain post ERCP on 03/16/2025 with elevated liver enzymes and elevated lipase suggestive of post ERCP pancreatitis Patient will eventually need cholecystectomy. General surgery on board and discussed with them. Planned interval cholecystectomy. Ultrasound abdomen with no signs of acute cholecystitis. Lipase level has trended down. Advance diet as tolerated today. - analgesics p.r.n.: Tylenol, [place], morphine - antiemetics p.r.n. - IV fluids: 125 mL/hour - monitor LFTs, WBC, and renal function Plan History of celiac disease. Unclear how this was diagnosed. Anemia microcytic Diet: Clear liquid, NPO at midnight GI Prophylaxis: N/a DVT Prophylaxis: SCDs IV fluids: 125 mL/hour Lines/Tubes: Peripheral IV Code Status: Full code Subjective Date/time seen: 03/17/25 12:37 Interval history: Feels much better today. Not much abdominal pain or nausea. Ready to eat. Review of Systems Review of Systems: All systems reviewed & are unremarkable except as noted in HPI and below Exam Narrative: APPEARANCE: Alert and oriented x3 not in acute distress EYES: EOMI HEENT: Normocephalic, atraumatic, OMM RESPIRATORY: No respiratory distress Clear to auscultation bilaterally with no rhonchi wheezing or rales. CARDIOVASCULAR: Regular rate and rhythm without murmurs rubs or gallops. ABDOMINAL: Soft, nontender nondistended without rebound or guarding MUSCULOSKELETAl: Moves all extremities. No clubbing, cyanosis or edema. NEURO: Awake and alert. Following commands, speech normal, no focal deficits SKIN:: Warm, dry. No rashes lesions or abrasions PSYCHIATRIC: Normal affect/mood, Objective Data Vital Signs Vital Signs: Vital Signs - 24 hr 03/16/25 13:20 03/16/25 20:00 03/16/25 20:00 Temperature 97.3 F L 98.2 F Pulse Rate 63 60 Respiratory Rate 18 18 Blood Pressure 110/64 100/52 L Pulse Oximetry 100 100 100 Oxygen Delivery Room Air 03/16/25 23:38 03/17/25 06:00 03/17/25 08:00 Temperature 98.2 F Pulse Rate 64 Respiratory Rate 18 Blood Pressure 95/57 L Pulse Oximetry 100 97 Oxygen Delivery Room Air Room Air Intake/Output Intake/Output: Intake & Output 03/14/25 03/15/25 03/16/25 03/17/25 23:59 23:59 23:59 23:59 Intake Total 1240 2714 1958.5 2200 Output Total 1900 700 2 Balance 9664 565 6729.5 2198 Meds/Results Medications: Active Medications Generic Name Dose Route Start Last Admin Trade Name Freq PRN Reason Stop Dose Admin Acetaminophen 650 mg 03/14/25 13:13 03/15/25 15:35 Acetaminophen 325 Mg Tablet PO 650 mg Q6H PRN Administration Mild Pain (1-3) or Fever Albuterol 1 puff 03/14/25 13:23 Albuterol Sulfate (*Sp) Aerosol 1 Puff INHALATION PRN PRN ASTHMA Docusate Sodium 100 mg 03/14/25 13:13 Docusate Sodium 100 Mg Capsule PO Q12H PRN Constipation Fentanyl Citrate 25 mcg 03/15/25 13:01 Fentanyl Citrate Inj (*Crx) 100 Mcg/2 Ml Vial IV PUSH Q2M PRN Pain Ibuprofen 800 mg in 200 mls @ 400 mls/hr 03/14/25 16:57 03/17/25 05:28 Caldolor 800 Mg/200 Ml IVPB Infused Q6H PRN Infusion Breakthrough Pain Rated 1-3 or NPO Morphine Sulfate 2 mg 03/14/25 16:57 03/17/25 05:00 Morphine Sulfate (*Crx) 2 Mg/Ml Inj IV PUSH 2 mg Q2H PRN Administration Breakthrough Pain Rated 4-6 or NPO Morphine Sulfate 4 mg 03/14/25 16:57 03/15/25 10:17 Morphine Sulfate (*Crx) 4 Mg/Ml Inj IV PUSH 4 mg Q2H PRN Administration Breakthrough Pain Rated 7-10 or NPO Naloxone HCl 0.1 mg 03/14/25 16:57 Naloxone Hcl 0.4 Mg/Ml Vial IV PUSH Q2M PRN Opiate Reversal Ondansetron HCl 4 mg 03/14/25 08:11 Ondansetron Inj 4 Mg/2 Ml Vial IV PUSH Q4H PRN Nausea Ondansetron HCl 4 mg 03/15/25 13:01 Ondansetron Inj 4 Mg/2 Ml Vial IV PUSH ONCE PRN Nausea Oxycodone/Acetaminophen 1 tablet 03/14/25 16:57 03/16/25 06:49 Oxycodone/Acetaminophen (*Crx) 5-325 Mg Tablet PO 1 tablet Q4H PRN Administration Pain Rated 4-6 Radiology Results: ITS Impressions Abdomen/Pelvis CT 03/14/25 07:20 IMPRESSION: 1. Cholelithiasis with mild intra and extrahepatic biliary ductal dilation suggesting either an occult obstructing stone or recently passed stone. Correlate with renal function tests and could consider MRCP for further evaluation as clinically indicated. 2. Partially ruptured 2 cm corpus luteum cyst at the left ovary. MRCP 03/14/25 14:13 IMPRESSION: 1. Cholelithiasis and choledocholithiasis with 3-4 mm stone in the distal common bile duct which measures up to 5-6 mm in maximal diameter. No gallbladder wall thickening or pericholecystic infiltrate showing to suggest acute cholecystitis. Endo Retro Cholangiopancreatogram 03/15/25 14:51 IMPRESSION: Fluoroscopy used during ERCP procedure. There are filling defects in the distal common duct which may represent stones or gas. Abdomen Ultrasound 03/16/25 15:27 IMPRESSION: 1. Cholelithiasis within the normal-appearing gallbladder with no abnormal dilation, wall thickening or sonographic Orr sign to suggest acute cholecystitis. Labs Labs: Laboratory Results - last 24 hr 03/17/25 04:40 WBC 5.4 RBC 4.54 Hgb 9.7 L Hct 32.7 L MCV 72.0 L MCH 21.4 L MCHC 29.7 L RDW 17.3 H Plt Count 280 MPV 10.6 H Immature Gran % (Auto) 0.2 Neut % (Auto) 60.8 Lymph % (Auto) 31.5 [place] % (Auto) 6.0 Eos % (Auto) 0.9 Baso % (Auto) 0.6 Lymph # (Auto) 1.69 [place] # (Auto) 0.3 Eos # (Auto) 0.1 Baso # (Auto) 0.0 Abs Immat Gran (auto) 0.01 Absolute Neuts (auto) 3.3 Absolute Nucleated RBC 0.000 Band Neutrophils % Not Reportable Nucleated RBC % 0.0 Platelet Estimate Adequate Hypochromasia 1+ Anisocytosis 1+ Microcytosis 1+ Ovalocytes 1+ Schistocytes None seen Sodium 137 Potassium 3.8 Chloride 106 Carbon Dioxide 25 Anion Gap 6 BUN 5 L Creatinine 0.62 L Estim Creat Clear Calc 113 Estimated GFR > 60 Glucose 80 Calcium 8.8 Magnesium 1.8 Total Bilirubin 0.5 AST 292 H ALT 437 H Alkaline Phosphatase 101 Total Protein 6.6 Albumin 3.7 Lipase 93
[2025-03-17] MEDS: DOCUSATE SODIUM 100 MG CAPSULE PO (13:22)
[2025-03-17 13:35] VITALS: BP 125/63; PULSE 78; RESP 18; TEMP 36.5; O2SAT 99
[2025-03-17 19:31] VITALS: BP 129/70; PULSE 71; RESP 18; TEMP 37.3; O2SAT 100
[2025-03-17] MEDS: ONDANSETRON INJ 4 MG/2 ML VIAL IV PUSH (19:39)
[2025-03-17] MEDS: ACETAMINOPHEN 325 MG TABLET 650 MG PO (22:26)
[2025-03-18 03:06] VITALS: BP 98/48; PULSE 52; RESP 18; TEMP 36.5; O2SAT 100
[2025-03-18 04:48] LABS: Hematocrit 31.6 % (37.0-47.0); Hemoglobin 9.6 g/dL (12.0-15.0); Immature Granulocyte Percent A 0.4 % (0-0.5); Lymphocytes Absolute Auto 2.15 K/mm3 (0.9-3.2); Mean Corpuscular HGB Conc 30.4 g/dl (32-36); Mean Corpuscular Hemoglobin 21.5 pg (26-34); Mean Corpuscular Volume 70.9 fl (80-100); Nucleated Red Blood Cells Absolute Auto 0.000 K/mm3 (0.0-0.012); Nucleated Red Blood Cells Perc 0.0 % (0.0-0.2); Platelet Count Result 273 k/mm3 (150-375); Red Blood Count 4.46 M/mm3 (4.2-5.4); White Blood Count 5.4 K/mm3 (4.5-10.0)
[2025-03-18 05:09] LABS: Alanine Aminotransferase 303 U/L (6-35); Albumin Level 3.9 g/dL (3.5-5.1); Alkaline Phosphatase 99 U/L (38-126); Anion Gap 10 mmol/L (4-12); Aspartate Amino Transferase 118 U/L (14-36); Bilirubin,Total 0.3 mg/dL (0.2-1.3); Blood Urea Nitrogen 8 mg/dL (7-17); Calcium 8.9 mg/dL (8.4-10.2); Carbon Dioxide 21 mmol/L (22-30); Chloride 106 mmol/L (98-107); Estimated CRCL calculation 108 ml/min; Estimated Glomerular Filt Rate > 60; Glucose 80 mg/dL (65-110); Magnesium 2.2 mg/dL (1.6-2.3); Potassium 4.1 mmol/L (3.4-5.0); Sodium 137 mmol/L (137-145); Total Protein 6.9 g/dL (6.3-8.2)
[2025-03-18 05:40] LABS: Anisocytosis 1+; Hypochromasia 1+; Ovalocytes 1+; Schistocytes None Seen
--- NOTE | 2025-03-18 06:42 | WPDGIPROGNO ---
Progress Note: A&P Assessment and Plan (1) Cholelithiasis: Qualifiers: Cholecystitis presence: without cholecystitis Cholelithiasis location: bile duct Code(s): K80.20 - Calculus of gallbladder without cholecystitis without obstruction Status: Acute Assessment and Plan: Patient's transient abdominal pain post ERCP as well as significant elevation of liver enzymes trending down favorably. She is safe to be discharged home. She already has arrangements for laparoscopic cholecystectomy in the next few days. (2) Choledocholithiasis with cholecystitis: Code(s): K80.40 - Calculus of bile duct with cholecystitis, unspecified, without obstruction Status: Acute Subjective Date/time seen: 03/18/25 06:42 Interval history: Patient tolerated oral feedings well. No abdominal pain today. Objective Data Vital Signs Vital Signs: Vital Signs - 24 hr 03/17/25 08:00 03/17/25 13:35 03/17/25 19:31 Temperature 97.7 F 99.2 F Pulse Rate 78 71 Respiratory Rate 18 18 Blood Pressure 125/63 129/70 Pulse Oximetry 99 100 Oxygen Delivery Room Air 03/18/25 03:06 Temperature 97.7 F Pulse Rate 52 L Respiratory Rate 18 Blood Pressure 98/48 L Pulse Oximetry 100 Oxygen Delivery Intake/Output Intake/Output: Intake & Output 03/15/25 03/16/25 03/17/25 03/18/25 23:59 23:59 23:59 23:59 Intake Total 2714 1958.5 2600 240 Output Total 1900 700 2 Balance 814 1258.5 2598 240 Meds/Results Medications: Active Medications Generic Name Dose Route Start Last Admin Trade Name Freq PRN Reason Stop Dose Admin Acetaminophen 650 mg 03/14/25 13:13 03/17/25 22:26 Acetaminophen 325 Mg Tablet PO 650 mg Q6H PRN Administration Mild Pain (1-3) or Fever Albuterol 1 puff 03/14/25 13:23 Albuterol Sulfate (*Sp) Aerosol 1 Puff INHALATION PRN PRN ASTHMA Docusate Sodium 100 mg 03/14/25 13:13 03/17/25 13:22 Docusate Sodium 100 Mg Capsule PO 100 mg Q12H PRN Administration Constipation Fentanyl Citrate 25 mcg 03/15/25 13:01 Fentanyl Citrate Inj (*Crx) 100 Mcg/2 Ml Vial IV PUSH Q2M PRN Pain Ibuprofen 800 mg in 200 mls @ 400 mls/hr 03/14/25 16:57 03/17/25 05:28 Caldolor 800 Mg/200 Ml IVPB Infused Q6H PRN Infusion Breakthrough Pain Rated 1-3 or NPO Morphine Sulfate 2 mg 03/14/25 16:57 03/17/25 05:00 Morphine Sulfate (*Crx) 2 Mg/Ml Inj IV PUSH 2 mg Q2H PRN Administration Breakthrough Pain Rated 4-6 or NPO Morphine Sulfate 4 mg 03/14/25 16:57 03/15/25 10:17 Morphine Sulfate (*Crx) 4 Mg/Ml Inj IV PUSH 4 mg Q2H PRN Administration Breakthrough Pain Rated 7-10 or NPO Naloxone HCl 0.1 mg 03/14/25 16:57 Naloxone Hcl 0.4 Mg/Ml Vial IV PUSH Q2M PRN Opiate Reversal Ondansetron HCl 4 mg 03/14/25 08:11 03/17/25 19:39 Ondansetron Inj 4 Mg/2 Ml Vial IV PUSH 4 mg Q4H PRN Administration Nausea Ondansetron HCl 4 mg 03/15/25 13:01 Ondansetron Inj 4 Mg/2 Ml Vial IV PUSH ONCE PRN Nausea Oxycodone/Acetaminophen 1 tablet 03/14/25 16:57 03/16/25 06:49 Oxycodone/Acetaminophen (*Crx) 5-325 Mg Tablet PO 1 tablet Q4H PRN Administration Pain Rated 4-6 Radiology Results: ITS Impressions Abdomen/Pelvis CT 03/14/25 07:20 IMPRESSION: 1. Cholelithiasis with mild intra and extrahepatic biliary ductal dilation suggesting either an occult obstructing stone or recently passed stone. Correlate with renal function tests and could consider MRCP for further evaluation as clinically indicated. 2. Partially ruptured 2 cm corpus luteum cyst at the left ovary. MRCP 03/14/25 14:13 IMPRESSION: 1. Cholelithiasis and choledocholithiasis with 3-4 mm stone in the distal common bile duct which measures up to 5-6 mm in maximal diameter. No gallbladder wall thickening or pericholecystic infiltrate showing to suggest acute cholecystitis. Endo Retro Cholangiopancreatogram 03/15/25 14:51 IMPRESSION: Fluoroscopy used during ERCP procedure. There are filling defects in the distal common duct which may represent stones or gas. Abdomen Ultrasound 03/16/25 15:27 IMPRESSION: 1. Cholelithiasis within the normal-appearing gallbladder with no abnormal dilation, wall thickening or sonographic Orr sign to suggest acute cholecystitis. Labs Labs: Laboratory Results - last 24 hr 03/18/25 04:25 WBC 5.4 RBC 4.46 Hgb 9.6 L Hct 31.6 L MCV 70.9 L MCH 21.5 L MCHC 30.4 L RDW 17.3 H Plt Count 273 MPV 10.6 H Immature Gran % (Auto) 0.4 Neut % (Auto) 49.6 Lymph % (Auto) 39.8 [place] % (Auto) 8.7 H Eos % (Auto) 0.9 Baso % (Auto) 0.6 Lymph # (Auto) 2.15 [place] # (Auto) 0.5 Eos # (Auto) 0.1 Baso # (Auto) 0.0 Abs Immat Gran (auto) 0.02 Absolute Neuts (auto) 2.7 Absolute Nucleated RBC 0.000 Band Neutrophils % Not Reportable Nucleated RBC % 0.0 Platelet Estimate Adequate Hypochromasia 1+ Anisocytosis 1+ Ovalocytes 1+ Schistocytes None seen Sodium 137 Potassium 4.1 Chloride 106 Carbon Dioxide 21 L Anion Gap 10 BUN 8 Creatinine 0.65 L Estim Creat Clear Calc 108 Estimated GFR > 60 Glucose 80 Calcium 8.9 Magnesium 2.2 Total Bilirubin 0.3 AST 118 H ALT 303 H Alkaline Phosphatase 99 Total Protein 6.9 Albumin 3.9
--- NOTE | 2025-03-18 12:08 | P.DS_ITS ---
DS: Admitting Diagnosis Discharge Date 03/18/2025 Admitting Diagnosis Abdominal pain DS: Discharge Diagnosis Discharge Diagnosis (1) Cholelithiasis: Qualifiers: Cholecystitis presence: without cholecystitis Cholelithiasis location: bile duct Code(s): K80.20 - Calculus of gallbladder without cholecystitis without obstruction Status: Acute DS: Summary Hospital Course Hospital Course: # Cholelithiasis: - CT abdomen/pelvis, 03/14: 1. Cholelithiasis with mild intra and extrahepatic biliary ductal dilation suggesting either an occult obstructing stone or recently passed stone. Correlate with renal function tests and could consider MRCP for further evaluation as clinically indicated. 2. Partially ruptured 2 cm corpus luteum cyst at the left ovary. - MCRP: Cholelithiasis and choledocholithiasis with 3-4 mm stone in the distal common bile duct which measures up to 5-6 mm in maximal diameter. No gallbladder wall thickening or pericholecystic infiltrate showing to suggest acute cholecystitis. - total bilirubin 0.3, AST 37, ALT 28 - general surgery consulted GI consult and status post ERCP with removal of CBD stones 03/15/2025 Worsened pain post ERCP on 03/16/2025 with elevated liver enzymes and elevated lipase suggestive of post ERCP pancreatitis.Repeat Ultrasound abdomen with no signs of acute cholecystitis. Lipase level has trended down. Advance diet as tolerated and has been tolerating well with resolution of pain. Patient will eventually need cholecystectomy which is planned as an outpatient basis. History of celiac disease. Unclear how this was diagnosed. Anemia microcytic Delete GI Prophylaxis: N/a DVT Prophylaxis: SCDs Code Status: Full code Time Spent with Patient Time attestation: Total time spent providing and/or coordinating discharge services: 35 minute Exam Narrative: APPEARANCE: Alert and oriented x3 not in acute distress EYES: EOMI HEENT: Normocephalic, atraumatic, OMM RESPIRATORY: No respiratory distress Clear to auscultation bilaterally with no rhonchi wheezing or rales. CARDIOVASCULAR: Regular rate and rhythm without murmurs rubs or gallops. ABDOMINAL: Soft, nontender nondistended without rebound or guarding MUSCULOSKELETAl: Moves all extremities. No clubbing, cyanosis or edema. NEURO: Awake and alert. Following commands, speech normal, no focal deficits SKIN:: Warm, dry. No rashes lesions or abrasions PSYCHIATRIC: Normal affect/mood, DS: Data Data Completed and Pending Labs on day of discharge: Labs from last 24 hours 03/18/25 04:25 WBC 5.4 RBC 4.46 Hgb 9.6 L Hct 31.6 L MCV 70.9 L MCH 21.5 L MCHC 30.4 L RDW 17.3 H Plt Count 273 MPV 10.6 H Immature Gran % (Auto) 0.4 Neut % (Auto) 49.6 Lymph % (Auto) 39.8 [place] % (Auto) 8.7 H Eos % (Auto) 0.9 Baso % (Auto) 0.6 Lymph # (Auto) 2.15 [place] # (Auto) 0.5 Eos # (Auto) 0.1 Baso # (Auto) 0.0 Abs Immat Gran (auto) 0.02 Absolute Neuts (auto) 2.7 Absolute Nucleated RBC 0.000 Band Neutrophils % Not Reportable Nucleated RBC % 0.0 Platelet Estimate Adequate Hypochromasia 1+ Anisocytosis 1+ Ovalocytes 1+ Schistocytes None seen Sodium 137 Potassium 4.1 Chloride 106 Carbon Dioxide 21 L Anion Gap 10 BUN 8 Creatinine 0.65 L Estim Creat Clear Calc 108 Estimated GFR > 60 Glucose 80 Calcium 8.9 Magnesium 2.2 Total Bilirubin 0.3 AST 118 H ALT 303 H Alkaline Phosphatase 99 Total Protein 6.9 Albumin 3.9 Imaging Radiologist's impression: ITS Impressions Abdomen/Pelvis CT 03/14/25 07:20 IMPRESSION: 1. Cholelithiasis with mild intra and extrahepatic biliary ductal dilation suggesting either an occult obstructing stone or recently passed stone. Correla te with renal function tests and could consider MRCP for further evaluation as clinically indicated. 2. Partially ruptured 2 cm corpus luteum cyst at the left ovary. MRCP 03/14/25 14:13 IMPRESSION: 1. Cholelithiasis and choledocholithiasis with 3-4 mm stone in the distal common bile duct which measures up to 5-6 mm in maximal diameter. No gallbladder wall thickening or pericholecystic infiltrate showing to suggest acute cholecystitis. Endo Retro Cholangiopancreatogram 03/15/25 14:51 IMPRESSION: Fluoroscopy used during ERCP procedure. There are filling defects in the distal common duct which may represent stones or gas. Abdomen Ultrasound 03/16/25 15:27 IMPRESSION: 1. Cholelithiasis within the normal-appearing gallbladder with no abnormal dilation, wall thickening or sonographic Orr sign to suggest acute cholecystitis. Discharge Plan Discharge Attending physician on discharge: Jin Chappell Consulting providers: Tc Marcial Discharging Clinician: Jin Chappell Anticipated Discharge Date/Time: 03/18/25 12:11 Patient Disposition: Home Activity: unlimited Diet: bland and low fat Discharge Instructions: tylenol 650 mg q6hrs as needed for pain control Patient Instructions: Antibiotic Form Patient Language: Afghan Stand Alone Forms: General Discharge Information Follow-up/Referrals: Tc Marcial MD [Physician, General Surgery] Referral Note: Follow-up with Dr. Marcial in the office in 1 week. Patient to call [phone] for an appointment. Ravi,Jean Sanchez, MA[employer]GER [employer] [Primary Care Provider, Unknown] - 1 Week Discharge Medications: Continued albuterol sulfate 90 mcg/actuation HFA aerosol inhaler 90 mcg INHALATION DIRECTED Patient Comments: exercise-related asthma attacks Discontinued fluoxetine 10 mg capsule 10 mg PO DIRECTED Date of admission: 03/16/25 11:05 Primary Care Provider: MelissaJean Admitting Provider: Nancy Celaya Attending physician on admission: Nancy Celaya Condition: Stable
--- NOTE | 2025-03-18 12:13 | PM.PNGS ---
Progress Note: A&P Assessment and Plan (1) Choledocholithiasis with cholecystitis: Code(s): K80.40 - Calculus of bile duct with cholecystitis, unspecified, without obstruction Status: Acute Assessment and Plan: Patient denies any abdominal pain today. LFTs continue to normalize. Bili normal. Lipase normal after ERCP and stone extraction. Tolerating low fiber diet without nausea or vomiting. Patient surgically stable for discharge with interval cholecystectomy likely next week. Plan Discussed patient's case and plan of care with Dr. Marcial. Subjective Subjective Date/Time Seen: 03/18/25 12:13 Patient reports: no new complaints, tolerating a regular diet, voiding w/o difficulty and afebrile Interval history: Patient is doing well today. No abdominal pain. Tolerating low fiber diet without nausea or vomiting. Bilirubin normal. LFTs continue to normalize. Lipase yesterday normal. Exam Const: General: comfortable and no acute distress Eyes: General: appearance normal, both eyes and all related structures Neck: Neck: supple Resp: Effort & Inspection: normal respiratory effort Cardio: Rate: regular rate GI: Inspection: non-distended GI Palp: Yes Soft to palpation, No Tenderness to palpation present (GI) and No Guarding due to palpation present (GI) Skin: General skin exam: normal color and no rashes or lesions noted Neuro: Speech: normal speech Extrem: General: normal to inspection Objective Data Vital Signs Vital Signs: Vital Signs - 24 hr 03/17/25 13:35 03/17/25 19:31 03/18/25 03:06 Temperature 97.7 F 99.2 F 97.7 F Pulse Rate 78 71 52 L Respiratory Rate 18 18 18 Blood Pressure 125/63 129/70 98/48 L Pulse Oximetry 99 100 100 Oxygen Delivery 03/18/25 10:16 Temperature Pulse Rate Respiratory Rate Blood Pressure Pulse Oximetry Oxygen Delivery Room Air Intake/Output Intake/Output: Intake & Output 03/15/25 03/16/25 03/17/25 03/18/25 23:59 23:59 23:59 23:59 Intake Total 2714 1958.5 2600 480 Output Total 1900 700 2 Balance 814 1258.5 2598 480 Meds/Results Medications: Active Medications Generic Name Dose Route Start Last Admin Trade Name Freq PRN Reason Stop Dose Admin Acetaminophen 650 mg 03/14/25 13:13 03/17/25 22:26 Acetaminophen 325 Mg Tablet PO 650 mg Q6H PRN Administration Mild Pain (1-3) or Fever Albuterol 1 puff 03/14/25 13:23 Albuterol Sulfate (*Sp) Aerosol 1 Puff INHALATION PRN PRN ASTHMA Docusate Sodium 100 mg 03/14/25 13:13 03/17/25 13:22 Docusate Sodium 100 Mg Capsule PO 100 mg Q12H PRN Administration Constipation Fentanyl Citrate 25 mcg 03/15/25 13:01 Fentanyl Citrate Inj (*Crx) 100 Mcg/2 Ml Vial IV PUSH Q2M PRN Pain Ibuprofen 800 mg in 200 mls @ 400 mls/hr 03/14/25 16:57 03/17/25 05:28 Caldolor 800 Mg/200 Ml IVPB Infused Q6H PRN Infusion Breakthrough Pain Rated 1-3 or NPO Morphine Sulfate 2 mg 03/14/25 16:57 03/17/25 05:00 Morphine Sulfate (*Crx) 2 Mg/Ml Inj IV PUSH 2 mg Q2H PRN Administration Breakthrough Pain Rated 4-6 or NPO Morphine Sulfate 4 mg 03/14/25 16:57 03/15/25 10:17 Morphine Sulfate (*Crx) 4 Mg/Ml Inj IV PUSH 4 mg Q2H PRN Administration Breakthrough Pain Rated 7-10 or NPO Naloxone HCl 0.1 mg 03/14/25 16:57 Naloxone Hcl 0.4 Mg/Ml Vial IV PUSH Q2M PRN Opiate Reversal Ondansetron HCl 4 mg 03/14/25 08:11 03/17/25 19:39 Ondansetron Inj 4 Mg/2 Ml Vial IV PUSH 4 mg Q4H PRN Administration Nausea Ondansetron HCl 4 mg 03/15/25 13:01 Ondansetron Inj 4 Mg/2 Ml Vial IV PUSH ONCE PRN Nausea Oxycodone/Acetaminophen 1 tablet 03/14/25 16:57 03/16/25 06:49 Oxycodone/Acetaminophen (*Crx) 5-325 Mg Tablet PO 1 tablet Q4H PRN Administration Pain Rated 4-6 Radiology Results: ITS Impressions Abdomen/Pelvis CT 03/14/25 07:20 IMPRESSION: 1. Cholelithiasis with mild intra and extrahepatic biliary ductal dilation suggesting either an occult obstructing stone or recently passed stone. Correlate with renal function tests and could consider MRCP for further evaluation as clinically indicated. 2. Partially ruptured 2 cm corpus luteum cyst at the left ovary. MRCP 03/14/25 14:13 IMPRESSION: 1. Cholelithiasis and choledocholithiasis with 3-4 mm stone in the distal common bile duct which measures up to 5-6 mm in maximal diameter. No gallbladder wall thickening or pericholecystic infiltrate showing to suggest acute cholecystitis. Endo Retro Cholangiopancreatogram 03/15/25 14:51 IMPRESSION: Fluoroscopy used during ERCP procedure. There are filling defects in the distal common duct which may represent stones or gas. Abdomen Ultrasound 03/16/25 15:27 IMPRESSION: 1. Cholelithiasis within the normal-appearing gallbladder with no abnormal dilation, wall thickening or sonographic Orr sign to suggest acute cholecystitis. Labs Labs: Laboratory Results - last 24 hr 03/18/25 04:25 WBC 5.4 RBC 4.46 Hgb 9.6 L Hct 31.6 L MCV 70.9 L MCH 21.5 L MCHC 30.4 L RDW 17.3 H Plt Count 273 MPV 10.6 H Immature Gran % (Auto) 0.4 Neut % (Auto) 49.6 Lymph % (Auto) 39.8 [place] % (Auto) 8.7 H Eos % (Auto) 0.9 Baso % (Auto) 0.6 Lymph # (Auto) 2.15 [place] # (Auto) 0.5 Eos # (Auto) 0.1 Baso # (Auto) 0.0 Abs Immat Gran (auto) 0.02 Absolute Neuts (auto) 2.7 Absolute Nucleated RBC 0.000 Band Neutrophils % Not Reportable Nucleated RBC % 0.0 Platelet Estimate Adequate Hypochromasia 1+ Anisocytosis 1+ Ovalocytes 1+ Schistocytes None seen Sodium 137 Potassium 4.1 Chloride 106 Carbon Dioxide 21 L Anion Gap 10 BUN 8 Creatinine 0.65 L Estim Creat Clear Calc 108 Estimated GFR > 60 Glucose 80 Calcium 8.9 Magnesium 2.2 Total Bilirubin 0.3 AST 118 H ALT 303 H Alkaline Phosphatase 99 Total Protein 6.9 Albumin 3.9
== END 2025-03-18 12:45 | disposition home or self-care (01) | DRG 446 ==
LOC: ANHED 08:14 → ANH2MED 08:56
PROVIDERS: Internal Medicine Gastroenterology; Student in an Organized Health Care Education/Training Program; Admitting Provider General Practice; Emergency Provider Student in an Organized Health Care Education/Training Program; PCP Nurse Practitioner Family; Visit Provider Internal Medicine
PROC: 0FC98ZZ Extirpation of Matter from Common Bile Duct, Via Natural or Artificial Opening Endoscopic (ICD-10-PCS; CPT 43260; principal; 2025-03-15 15:00)
DX: K80.60 Calculus of gallbladder and bile duct with cholecystitis, unspecified, without obstruction (principal); D50.9 Iron deficiency anemia, unspecified; N83.12 Corpus luteum cyst of left ovary; Z87.19 Personal history of other diseases of the digestive system
CPT/HCPCS: 36415; 74177; 74183; 74329; 76376; 76705; 80053; 81001; 81025; 82607; 82728; 82746; 83540; 83550; 83690; 83735; 85025; 85046; 96374; 96375; 96376; 99285; A9270; A9577; G0378; J0330; J1741; J1885; J2270; J2405; J2704; J7030; J7120; Q9966; Q9967

== ENCOUNTER 2025-03-22 10:25 | Outpatient (CLI) | payer OTHER, SELFPAY ==
--- OUTSIDE RECORDS SUMMARY | 2025-03-22 11:16 | XMS_ITS | Encounter Summary ---
Author Organization [facility] Address [address] [place] [address] Care Team Providers Care Utilization Management Nurse Name Role Phone Trent Gonzales MD Primary Care Provider Encounter Details Date Type Department Care Team (Late st Contact Info) Description 12/16/2018 Abstract SFL CONVERSION [address] [place], [place] [id number] , Generic Conversion, Social History Tobacco Use Types Packs/Day Years Used Date Smoking Tobacco: Never Assessed Comments Unknown Sex and Gender Information Value Date Recorded Sex Assigned at Not on file Legal Sex Female 9:46 PM CDT Gender Identity Not on file Sexual Orientation Not on file documented as of this encounter Plan of Treatment Not on file documented as of this encounter Visit Diagnoses Not on filedocumented in this encounter Care Teams Utilization Management Nurse Relationship Specialty Start Date End Date Trent Gonzales MD [address] [place] [id number] PCP - General FAMILY PRACTICE 01/02/19 documented as of this encounter
--- OUTSIDE RECORDS SUMMARY | 2025-03-22 11:16 | XMS_ITS | Encounter Summary ---
Author Organization [facility] - [facility] Address [address] [place] [address] Care Team Providers Care Economic Development Specialist Name Role Phone Trent Gonzales MD Primary Care Provider Encounter Details Date Type Department Care Team (Late st Contact Info) Description 12/28/2018 Hospital Orders Only [facility] [address] [place] [address] Trent Gonzales MD [address] [place] [address] Social History Tobacco Use Types Packs/Day Years [...] on filedocumented in this encounter Care Teams Economic Development Specialist Relationship Specialty Start Date End Date Trent Gonzales MD [address] [place] [address] PCP - General FAMILY PRACTICE 01/02/19 documented as of this encounter
--- OUTSIDE RECORDS SUMMARY | 2025-03-22 11:16 | XMS_ITS | Clinical Summary ---
Author Organization [facility] Address [facility] [place] [address] Care Team Providers Care Paper Machine Operator Name Role Phone Trent Gonzales MD Primary Care Provider Allergies No known active allergies Medications buPROPion XL 150 MG 24 hr tablet Take 150 mg by mouth daily. Active Active Problems Problem Noted Date Diagnosed Date Iron deficiency anemia 09/03/2020 Chronic anemia 12/28/2018 Malabsorption of iron (HHS/HCC) 12/28/2018 Overview (12/28/2018): Oral form Family History Medical History Relation Comments Heart Disease Father Relation Status Comments Father Mother Alive Social History Tobacco Use Types Packs/Day Years Used Date Smoking Tobacco: Never Smokeless Tobacco: Never Alcohol Use Standard Drinks/Week Comments Yes 0 (1 standard drink = 0.6 oz pur e alcohol) Comments Unknown Sex and Gender Information Value Date Recorded Sex Assigned at Not on file Legal Sex Female 9:46 PM CDT Gender Identity Not on file Sexual Orientation Not on file Last Filed Vital Signs Vital Sign Reading Time Taken Comments Blood Pressure 111/66 09/19/2020 8:42 AM MARINA MANAGER Pulse 74 09/19/2020 8:42 AM MARINA MANAGER Temperature 35.9 C (96.7 F) 09/19/2020 8:42 AM MARINA MANAGER Respiratory Rate 18 09/19/2020 8:42 AM MARINA MANAGER Oxygen Saturation 100% 09/19/2020 8:42 AM MARINA MANAGER Inhaled Oxygen Concentration - - Weight 71.8 kg (158 lb 4.6 oz) 09/16/2020 1:26 P M MARINA MANAGER Height 162.6 cm (5' 4) 03/15/2019 8:35 AM CDT Body Mass Index 27.17 03/15/2019 8:35 AM CDT Plan of Treatment Health Maintenance Due Date Last Done Comments Cervical Cancer Screening Pap Smear (Age 30 to 64) Every 3 Years 1993 Annual Physical 01/29/1996 Hepatitis C 2011 DTaP, Tdap and Td Vaccines (2 - Tdap) 01/29/2012 03/14/1997, 06/25/1994, 04/08/1994, Additional history exists Hepatitis B Vaccines (1 of 3 - 19+ 3-dose series) 01/29/2012 Cervical Cancer Screening Pap with HPV Testing (Age 30 to 64) Every 5 Years 2023 Cervical Cancer Screening with HPV 2023 COVID-19 Vaccine ( season) 2025 HPV Vaccines Completed 09/22/2018, 02/20/2007 Meningococcal B Vaccine Aged Out No l onger eligible based on patient's age to complete this topic Meningococcal Vaccine Aged Out No sam aislinn eligible based on patient's age to complete this topic Pneumococcal Vaccine: Pediatrics (0 to 5 Years) and At-Risk Patients (6 to 49 Years) Aged Out No longer eligible based on patient's age to complete this topic RSV Immunizations Under 20 Months Aged Out No longer eligible based on patient's age to complete this topic Insurance [employer] Care Teams Paper Machine Operator Relationship Specialty Start Date End Date Trent Gonzales MD [address] [place] [address] [place] [address] PCP - General FAMILY PRACTICE 01/02/19
--- OUTSIDE RECORDS SUMMARY | 2025-03-22 11:16 | XMS_ITS | Encounter Summary ---
Author Organization [facility] - [facility] Address [address] [place] [id number] Care Team Providers Care Starch Crab Name Role Phone Trent Gonzales MD Primary Care Provider Encounter Details Date Type Department Care Team (Late st Contact Info) Description 09/03/2020 Hospital Orders Only [facility] [address] [place] [address] Kate Still, RN Social History Tobacco Use Types Packs/Day Years [...] documented as of this encounter Visit Diagnoses Diagnosis Iron deficiency anemia- Primary Iron deficiency anemia, unspecified Iron deficiency anemia, unspecified iron deficiency anemia type documented in this encounter Care Teams Starch Crab Relationship Specialty Start Date End Date Trent Gonzales MD [address] [place] [phone] PCP - General FAMILY PRACTICE 01/02/19 documented as of this encounter
[2025-03-22 11:17] LABS: Alanine Aminotransferase 160 U/L (6-35); Albumin Level 4.0 g/dL (3.5-5.1); Alkaline Phosphatase 117 U/L (38-126); Amylase 67 U/L (30-110); Aspartate Amino Transferase 76 U/L (14-36); Bilirubin,Total 0.3 mg/dL (0.2-1.3); Lipase 93 U/L (23-300); Total Protein 7.0 g/dL (6.3-8.2)
== END 2025-03-22 10:26 | disposition home or self-care (01) ==
PROVIDERS: Visit Provider Surgery
DX: K80.20 Calculus of gallbladder without cholecystitis without obstruction (principal)
CPT/HCPCS: 36415; 80076; 82150; 83690

== ENCOUNTER 2025-03-27 02:46 | Day surgery (SDC) | payer OTHER, SELFPAY ==
[2025-03-20 09:41] VITALS: BMI 29.2
--- NOTE | 2025-03-20 09:47 | PC.NURSE ---
Report to the Outpatient Waiting Room, entrance under the green pavilion located off [facility], at time _0800_ on date _[id number]_. Planned Procedure Time: _1000_.? Time changes happen often and if your time is changed the preop area will call you the afternoon before. - You and your visitor will be asked to self-screen and do not enter if you have any COVID symptoms. Please call surgeon if you need to reschedule. - A mask is optional within the hospital at this time. Patients may have clear liquids (water, carbonated beverages, clear teas, apple juice) until 3 hours prior to surgery with a maximum of 20 ounces. - No food from midnight until time of surgery and no smoking, or chewing tobacco (or any form of nicotine). No chewing gum, candy or mints. Take only the following medications with a SIP of water on the morning of surgery: __None___ DO NOT STOP ANY OF YOUR OTHER PRESCRIPTION MEDICATIONS PRIOR TO SURGERY EXCEPT THE FOLLOWING Hold all vitamins and supplements for 3 days per anesthesiologist. Medications to discontinue per physician Date to take last dose Please no make-up, nail slovenian, hairspray, perfume, deodorant, or body powder the day of surgery.? No jewelry (including any body piercings) or valuables the day of surgery, leave them at home.? Please take a shower or bath the night before, or the morning of, surgery with an antibacterial soap.? Wear comfortable, loose fitting clothing.? - Jewelry must be removed prior to entering the operating room.? Rings and piercings that are not removed may be cut off. - The hospital will not accept responsibility for valuables.? - Please leave all valuables, including medications, at home the day of surgery. If you are going home after surgery, a licensed equipment driver must drive you home.? - NO public transportation without another adult if you receive anesthesia. - We recommend that an adult stay with you for 24 hours following discharge. - We also recommend that you do not drive, make important decision, drink alcoholic beverages, or take any drugs that were not prescribed by your health care provider for at least 24 hours after your discharge time. Follow any additional instructions given to you from your surgeon. Telephone instructions given to __Michelle___and asked if any additional questions and then verbalized understanding. Patient advised to call surgeon office or pre surgery nurse liaison [phone] if any additional questions.
[2025-03-27] VITALS (10 sets, daily range): BP systolic 118–129; BP diastolic 68–83; PULSE 67–95; RESP 14–20; TEMP 36.1–36.4; O2SAT 98–100
[2025-03-27] MEDS: ACETAMINOPHEN 500 MG TABLET 1000 MG PO (08:24)
--- NOTE | 2025-03-27 08:25 | WPDHPUPDATE1 ---
History and Physical Update Update Date/Time: 03/27/25 08:25 History and Physical has been reviewed, including an updated exam of the patient. There are NO changes in the patient's condition. Risks, benefits, and alternatives have been discussed and questions answered. Patient agrees to proceed with procedure.
[2025-03-27] MEDS: LACTATED RINGERS 1,000 ML 30 ML IV CONT ×2 (08:30→12:21)
[2025-03-27] MEDS: KETOROLAC 15 MG/ML VIAL (*BKC) IV PUSH (08:31)
--- NOTE | 2025-03-27 09:08 | WPDANESEPPF ---
Anes - Initial Pre Proc Eval Procedure: Operation Date: 03/27/25 10:00 Proposed Procedures p Laparoscopic Cholecystectomy - Tc Marcial MD Date/Time: 03/27/25 09:08 Surgeon: Tc Marcial MD Pre Op Diagnosis: cholelithiasis Patient Data Age: 30 Gender: F Height: 1.63 m Weight: 76.6 kg Last Vital Signs Temp 36.1 C L 03/27/25 08:05 Pulse 73 03/27/25 08:05 Resp 20 03/27/25 08:05 BP 121/72 03/27/25 08:05 Pulse Ox 99 03/27/25 08:05 O2 Del Method Room Air 03/27/25 08:05 Allergies Allergy/AdvReac Type Severity Reaction Status Date / Time No Known Allergies Allergy Verified 03/27/25 08:37 Home Medications ?Medication ?Instructions ?Recorded ?Confirmed ?Type No Home Medications 03/20/25 03/20/25 History Patient hx anesthesia problems: none Family hx anesthesia problems: none Results Review: All pre-operative results and documents have been reviewed as part of the pre-operative evaluation. [facility] Past Medical History Medical History (Updated 03/15/25 @ 16:00 by Gaudencio Milner MD) Nausea and vomiting in adult Elevated liver enzymes Celiac disease Family History Family History Other Family history non-contributory Social History Social History (Updated 03/15/25 @ 13:01 by Albert Woodard DO) Smoking status: Never smoker Alcohol intake: current Drinks per week: 10 Alcohol use details: at least 1/day Substance use: never Substance use type: does not use Lack of Transportation: No Lack of Food: Never True Current Housing: I Have Housing Concerned About Future Housing: No Difficulty Paying Gas/Electric Bills: No Difficulty Paying for Meds: No Currently Unemployed: No Education: Trade/Vocational Certificate Difficulty w/ Childcare or Family Care: No Living arrangements: with family Gender identity (if verbalized by the patient): Female Spiritual care concerns: No Anes - Eval Final PreProcedure Day of Procedure 03/27/25 09:08 Patient weight: overweight Heart: regular rate and rhythm Lungs: clear to auscultation Airway: Mallampati scale class 1 Neurological: alert and oriented Last oral intake: >/= 8 hours ASA classification: III Emergent: no Anesthetic plan: proceed Anesthesia type and monitoring: general ETT and standard monitoring Results Review: All pre-operative results and documents have been reviewed as part of the pre-operative evaluation. Informed Consent: The patient's anesthetic plan and its attendant risks and benefits were discussed with the patient/family/POA. Questions were solicited and answers provided to the satisfaction of the patient/family/POA.
[2025-03-27 09:19] LABS: BEDSIDEPREGUCG Negative (Negative)
--- NOTE | 2025-03-27 10:48 | P.OP_ITS ---
Procedure Note - Detailed Date of Procedure 03/27/25 Pre-op Diagnosis Choledocholithiasis with chronic cholecystitis Post-op Diagnosis Same Procedure Performed Laparoscopic cholecystectomy Surgeon Tc Marcial MD Wader Boot Top Assembler Christina MENCHACA Anesthesia General and Local Indications Patient presented to the hospital on the 14 of March with severe epigastric abdominal pain and evidence of common bile duct stones. She underwent an ERCP which cleared her common bile duct. She was tolerating oral intake uncomfortable. She is taken back to surgery today for laparoscopic cholecystectomy. Findings Chronic inflammation, no biliary ductal dilatation, no liver abnormalities. Description of Procedure Patient was taken to surgery and induced into general anesthesia. The abdomen is prepped and draped. Trocars were placed in the usual fashion using [employer] B[employer]ed [employer] optical trocars and a 5 mm camera. The gallbladder was decompressed with a laparoscopic aspirator. The cholecystotomy was closed with a Vicryl endoloop. The gallbladder was freed from adhesions and retracted anterosuperiorly. Dissection was carried out in the cholecystohepatic triangle. The cystic duct and cystic artery were dissected out clearly. The gallbladder was dissected off the liver over its lower 3rd. Critical view was achieved. I then securely clipped and divided the cystic artery. The cystic duct was still dilated and was too large to be occluded safely with just clips. I clipped it close to the gallbladder, divided the cystic duct, and then placed a clip as well as a Vicryl endoloop to ligate the stump of the cystic duct. The gallbladder was then further dissected from its remaining attachments to the liver. Once the gallbladder was free, it was placed in an Endo-Catch bag and retrieved through the 10 11 epigastric trocar site. We then replaced the epigastric trocar and reviewed the gallbladder fossa and right upper quadrant. It was irrigated and suctioned. All looked good. There was no evidence of bleeding or bile leakage. We then evacuated CO2 and removed the trocar sleeves. Skin wounds were closed with subcuticular 4-0 Monocryl skin suture. The wounds were dressed with Exofin surgical adhesive. Patient was awakened and taken to recovery in good condition. Sponge needle counts were correct x2. Estimated Blood Loss -10 Drains No Packing No Pathology Yes (Gallbladder) Complications None Condition Stable Disposition PACU [facility] Billing Surgery - Charge Forward: Surgery Billing (Laparoscopic cholecystectomy)
[2025-03-27] MEDS: ceFAZolin 2 GM in SODIUM CHLORIDE 0.9% IV 50 ML 100 ML IVPB (10:53)
[2025-03-27] MEDS: BUPIVACAINE/EPINEPHRINE 0.5% 50 ML VIAL 30 ML INFILTRATE (11:23)
--- NOTE | 2025-03-27 11:44 | S_PTH ---
PATIENT: Monisha Rutherford LOC: [facility] U#:[id number] AGE/SX: 30/F ROOM: RE03/27/[address]: Tc Marcial MD : 1995 BED: DIS: 03/27/2025 SPEC #: [id number] RECD: 03/27/25 13:04 STATUS: RORY REQ #: [id number] DIONISIO: 03/27/25 11:[address]: Tc Marcial DEPT: [facility] Surgical RECD BY: Christi Handy ENTERED: 03/27/25 13:04 SP TYPE: Surgical OTHR DR: SHOVEL LOG LOADER OPERATOR PHYSICIAN Tissues: A - Gallbladder Procedures: Hematoxylin and Eosin Stain Gross and Microscopic Level 3
[2025-03-27] MEDS: fentaNYL CITRATE INJ (*CRX) 100 MCG/2 ML VIAL 25 MCG IV PUSH ×5 (12:17→12:50)
[2025-03-27] MEDS: oxyCODONE HCL (*CRX) 5 MG TAB IR PO (13:05)
== END 2025-03-27 14:00 | disposition home or self-care (01) ==
PROVIDERS: Visit Provider Surgery
PROC: 0FT44ZZ Resection of Gallbladder, Percutaneous Endoscopic Approach (ICD-10-PCS; CPT 47562; principal; 2025-03-27 10:00)
DX: K80.64 Calculus of gallbladder and bile duct with chronic cholecystitis without obstruction (principal)
CPT/HCPCS: 47562; 88304; J0690; A9270; J1100; J1885; J2250; J2405; J2704; J3010; J7120